=== PATIENT | female | born 1935 | race Caucasian/White ===

== ENCOUNTER 2017-11-25 12:12 | Inpatient (IN) | payer MEDICARE, MEDICAID ==
[2017-11-25 12:17] VITALS: BMI 25.0
[2017-11-25] MEDS ORDERED: Albuterol-Ipratrop 3 mg / 0.5 (3 ml) UD INH STA ×2 (14:23→14:32)
[2017-11-25] MEDS ORDERED: cefTRIAXone IV 1 gm in Dextros 50 ML IV ONE (14:24)
[2017-11-25] MEDS ORDERED: Azithromycin 500 MG in Sodium Chloride 0.9% 250 ML IV STA (14:24)
[2017-11-25 15:00] LABS: BASO % 0.5 % (0.0-2.0); EOS # 0.1 K/uL (0.0-0.7); EOS % 1.6 % (0.0-4.0); HEMOGLOBIN 13.5 g/dL (11.0-16.0); LYMPH % 34.7 % (20.0-40.0); MEAN CELL VOLUME 95.5 fL (81.0-99.0); MEAN CORPUSCULAR HGB CONC 33.5 g/dL (33.0-37.0); MEAN PLATELET VOLUME 10.9 fL (7.2-11.7); MONO # 0.7 K/uL (0.0-0.8); MONO % 8.4 % (0.0-10.0); NEUT # 4.7 K/uL (1.8-7.0); NEUT % 54.8 % (50.0-75.0); RBC 4.23 Mil/uL (3.80-5.20); RED CELL DISTRIBUTION WIDTH 14.9 % (11.5-14.5); WHITE BLOOD COUNT 8.7 K/uL (4.8-10.8)
[2017-11-25 15:07] LABS: INR 1.1; PROTHROMBIN TIME 12.2 SECONDS (9.7-12.2)
[2017-11-25 15:19] LABS: ALB/GLOB RATIO 1.1 (1.0-2.1); ALBUMIN 3.9 g/dL (3.5-5.0); ALT/SGPT 17 U/L (9-52); AST/SGOT 29 U/L (14-36); BLOOD UREA NITROGEN 15 mg/dL (7-17); GFR AFRICAN-AMERICAN > 60; GFR NON-AFRICAN AMERICAN > 60
--- NOTE | 2017-11-25 15:28 | C.PDOC ---
History Of Present Illness 82 y/o female presents to the ER complaining of productive coughing which has been present for an unknown amount of time. Patient reports that she has been coughing up brown sputum for an unknown period of time. Patient reports that she ran out one of her asthma medications. Patient reports questionable home O2 use overnight. Patient denies having any fever or chills. Time Seen by Provider: 11/25/17 13:25 Chief Complaint (Nursing): Shortness Of Breath History Per: Patient History/Exam Limitations: no limitations Onset/Duration Of Symptoms: Unknown Current Symptoms Are (Timing): Still Present Past Medical History Reviewed: Historical Data, Nursing Documentation, Vital Signs Vital Signs: Last Vital Signs Temp 97.9 F 11/29/17 15:16 Pulse 90 11/29/17 16:09 Resp 18 11/29/17 15:16 BP 125/74 11/29/17 15:16 Pulse Ox 96 11/29/17 15:16 - Medical History PMH: Alzheimer's Disease, Asthma, CHF, COPD, HTN, Hypothyroidism Denies: Chronic Kidney Disease Surgical History: Appendectomy - [facility] Procedures EXCISION OF STOMACH, ENDO, DIAGN (05/07/16) Family History: States: No Known Family Hx - Social History Hx Alcohol Use: No Hx Substance Use: No - Immunization History Hx Tetanus Toxoid Vaccination: No Hx Influenza Vaccination: Yes Hx Pneumococcal Vaccination: Yes Review Of Systems Except As Marked, All Systems Reviewed And Found Negative. Constitutional: Negative for: Fever, Chills Respiratory: Positive for: Cough (productive cough), Sputum (brown sputum) Neurological: Negative for: Weakness, Numbness Physical Exam - Physical Exam Appears: Non-toxic, No Acute Distress, Other (frail woman) Skin: Normal Color, Warm Head: Atraumatic, Normacephalic Eye(s): bilateral: Normal Inspection Nose: Normal Oral Mucosa: Moist Neck: Supple Cardiovascular: Rhythm Regular Respiratory: Normal Breath Sounds, No Accessory Muscle Use, Rhonchi (scattered rhonchi), No Wheezing Extremity: Normal ROM, Tenderness (tenderness in the left trapezius muscle), No Calf Tenderness, No Deformity, No Swelling Neurological/Psych: Oriented x3, Normal Speech, Normal Cognition ED Course And Treatment - Laboratory Results Result Diagrams: 11/29/17 07:26 11/29/17 07:26 Lab Interpretation: Normal (trop neg, bnp neg.) O2 Sat by Pulse Oximetry: 98 (RA) Pulse Ox Interpretation: Normal - Radiology CXR: Interpreted by Me CXR Interpretation: Yes: No Acute Disease Progress Note: rocephin, azothromycin, solumedrol, duoneb Reevaluation Time: 16:26 Reassessment Condition: Improved - Physician Consult Information Outcome Of Conversation: 1630: d/w Dr. Usha Ornelas- PMD- ok to admit. Medical Decision Making Medical Decision Making: Impression: Productive Cough Plan: --Labs -- X-Ray- Left Shoulder --ECG --Nebulizer Treatment --Duoneb 3 ml INH cough/sob: Clear lungs. ? home O2 overnight vs CPAP? empiric abx and nebs for pt's story of productive cough L shoulder pain/decreased ROM + L trapezius tenderness, normal shoulder joint and film. NSAIDS and solumdrol for the resp issues should help No more hot massages by [facility]0 seem to make it worse. Loose stools No stools in ED as pt recently hospitalized and abx may be at risks for C-dif but no s/s now. Disposition Doctor Will See Patient In The: Hospital Counseled Patient/Family Regarding: Studies Performed, Diagnosis - Disposition Disposition: HOSPITALIZED Disposition Time: 16:00 Condition: GOOD - Clinical Impression Clinical Impression: Chronic obstructive pulmonary disease with (acute) exacerbation, Trapezius strain, Diarrhea - Scribe Statement The provider has reviewed the documentation as recorded by the Hakan Rdz Provider Attestation: All medical record entries made by the Hakan were at my direction and personally dictated by me. I have reviewed the chart and agree that the record accurately reflects my personal performance of the history, physical exam, medical decision making, and the department course for this patient. I have also personally directed, reviewed, and agree with the discharge instructions and disposition.
[2017-11-25 15:30] LABS: B-TYPE NATRIURETIC PEPTIDE 520 pg/mL (0-900)
[2017-11-25] MEDS ORDERED: Albuterol-Ipratrop 3 mg / 0.5 (3 ml) UD ONE (15:32)
--- NOTE | 2017-11-25 16:53 | RAD ---
PROCEDURE: Radiographs of the Left Shoulder HISTORY: L shoulder pain COMPARISON: No prior. FINDINGS: BONES: No fracture or dislocation. JOINTS: . Glenohumeral and acromioclavicular hypertrophic arthrosis SOFT TISSUES: Punctate and linear calcifications ossifications bordering the humeral head -calcific tendinopathy and/or calcific bursitis considerations. OTHER FINDINGS: None. IMPRESSION: No fracture or dislocation. Glenohumeral and acromioclavicular osseous hypertrophic arthrosis. Left calcific rotator cuff tendinopathy versus calcific bursitis.
--- NOTE | 2017-11-25 16:56 | RAD ---
PROCEDURE: CHEST RADIOGRAPH, 1 VIEW HISTORY: SOB COMPARISON: 12/11/2016 FINDINGS: LUNGS: No consolidation. Short segmental thin lateral left mid lung zone interval discoid atelectasis and/or scarring suggested PLEURA: No pneumothorax or pleural fluid seen. CARDIOVASCULAR: Normal. OSSEOUS STRUCTURES: Thoracic spondylosis. Bilateral shoulder arthrosis. Left rotator cuff small calcific rotator cuff tendinopathy and/or calcific bursitis. VISUALIZED UPPER ABDOMEN: Normal. OTHER FINDINGS: None. IMPRESSION: No consolidative infiltrate. Interval short segmental thin discoid atelectasis and/or scarring -lateral left mid lung zone. Bilateral shoulder arthrosis Left shoulder calcific bursitis center calcific rotator cuff tendinopathy sign -small calcifications noted
--- NOTE | 2017-11-25 17:44 | CP.PCM.HP ---
Past Patient History - Past Medical History & Family History Past Medical History?: Yes - Past Social History Smoking Status: Never Smoked - CARDIAC Hx Congestive Heart Failure: Yes Hx Hypertension: Yes - PULMONARY Hx Asthma: Yes Hx Chronic Obstructive Pulmonary Disease (COPD): Yes - NEUROLOGICAL Hx Alzheimer's Disease: Yes - HEENT Hx HEENT Problems: No - RENAL Hx Chronic Kidney Disease: No - ENDOCRINE/METABOLIC Hx Hypothyroidism: Yes - HEMATOLOGICAL/ONCOLOGICAL Hx Blood Disorders: No Hx Blood Transfusions: No - INTEGUMENTARY Hx Dermatological Problems: No - MUSCULOSKELETAL/RHEUMATOLOGICAL Hx Falls: No - GASTROINTESTINAL Hx Gastrointestinal Disorders: No - GENITOURINARY/GYNECOLOGICAL Hx Genitourinary Disorders: No - PSYCHIATRIC Hx Substance Use: No - SURGICAL HISTORY Hx Appendectomy: Yes - ANESTHESIA Hx Anesthesia: Yes Hx Anesthesia Reactions: No Hx Malignant Hyperthermia: No Meds Allergies/Adverse Reactions: Allergies Allergy/AdvReac Type Severity Reaction Status Date / Time aspirin Allergy Verified 11/25/17 12:16 Penicillins Allergy Verified 11/25/17 12:16 Physical Exam - Constitutional Appears: Well - Head Exam Head Exam: ATRAUMATIC, NORMAL INSPECTION, NORMOCEPHALIC - Eye Exam Eye Exam: EOMI, Normal appearance, PERRL Pupil Exam: NORMAL ACCOMODATION, PERRL - ENT Exam ENT Exam: Mucous Membranes Moist, Normal Exam - Neck Exam Neck exam: Positive for: Normal Inspection - Respiratory Exam Respiratory Exam: Decreased Breath Sounds - Cardiovascular Exam Cardiovascular Exam: REGULAR RHYTHM, +S1, +S2 - GI/Abdominal Exam GI & Abdominal Exam: Diminished Bowel Sounds, Soft - Rectal Exam Rectal Exam: Deferred Results - Vital Signs Recent Vital Signs: Last Vital Signs Temp 97.5 F L 11/25/17 12:17 Pulse 61 11/25/17 17:26 Resp 18 11/25/17 17:26 BP 120/73 11/25/17 17:26 Pulse Ox 95 11/25/17 17:26 - Labs Result Diagrams: 11/25/17 14:48 11/25/17 14:48 Labs: Laboratory Results - last 24 hr 11/25/17 11/25/17 11/25/17 14:48 14:48 14:48 WBC 8.7 RBC 4.23 Hgb 13.5 Hct 40.4 MCV 95.5 D MCH 32.0 H MCHC 33.5 RDW 14.9 H Plt Count 187 MPV 10.9 Neut % (Auto) 54.8 Lymph % (Auto) 34.7 L[place] % (Auto) 8.4 Eos % (Auto) 1.6 Baso % (Auto) 0.5 Neut # 4.7 Lymph # 3.0 Luce # 0.7 Eos # 0.1 Baso # 0.0 PT 12.2 INR 1.1 APTT 31 Sodium 135 Potassium 3.5 L Chloride 96 L Carbon Dioxide 30 Anion Gap 12 BUN 15 Creatinine 0.7 Est GFR ( Amer) > 60 Est GFR (Non-Af Amer) > 60 Random Glucose 112 H Calcium 8.0 L Total Bilirubin 0.7 AST 29 ALT 17 Alkaline Phosphatase 36 L Troponin I < 0.0120 NT-Pro-B Natriuret Pep 520 Total Protein 7.3 Albumin 3.9 Globulin 3.5 Albumin/Globulin Ratio 1.1
[2017-11-25] MEDS: Albuterol-Ipratrop 3 mg / 0.5 (3 ml) UD INH SCH (20:03)
--- NOTE | 2017-11-25 20:30 | CP.PCM.CON ---
History of Present Illness - History of Present Illness History of Present Illness: INFECTIOUS DISEASE CONSULT; HPI; 82-year-old female with history of diabetes mellitus, HTN, COPD, hyperlipidemia , dementia who presents to the ER complaining of productive cough for the past 2 weeks or more. Patient also reports she has been coughing up brownish expectorant for unknown period of time. She denies any chest pains. Patient also reports that she ran out of her asthma medications and was not taking anything except her other pills. Patient denies any fever or chills. Patient was given IV Zithromax in the ER as she is allergic to penicillin. Infectious disease consultation requested by PMD for evaluation of pneumonia and exacerbation of COPD. PMH: Alzheimer's Disease, Asthma, CHF, COPD, HTN, Hypothyroidism Denies: Chronic Kidney Disease Surgical History: Appendectomy - [facility] Procedures EXCISION OF STOMACH, ENDO, DIAGN (05/07/16) Family History: States: No Known Family Hx - Social History Hx Alcohol Use: No Hx Substance Use: No - Immunization History Hx Tetanus Toxoid Vaccination: No Hx Influenza Vaccination: Yes Hx Pneumococcal Vaccination: Yes Review of Systems - Constitutional Constitutional: absent: Chills - EENT Eyes: absent: Loss of Vision Nose/Mouth/Throat: absent: Dry Mouth, Mouth Lesions, Sore Throat - Cardiovascular Cardiovascular: absent: Chest Pain - Respiratory Respiratory: Cough, Chest Congestion - Gastrointestinal Gastrointestinal: absent: Abdominal Pain, Diarrhea, Nausea, Vomiting - Genitourinary Genitourinary: absent: Dysuria - Menstruation Menstruation: Post Menopausal - Neurological Neurological: absent: Headaches - Hematologic/Lymphatic Hematologic: As Per HPI. absent: Lymphadenopathy Past Patient History - Past Medical History & Family History Past Medical History?: Yes - Past Social History Smoking Status: Never Smoked - CARDIAC Hx Congestive Heart Failure: Yes Hx Hypertension: Yes - PULMONARY Hx Asthma: Yes Hx Chronic Obstructive Pulmonary Disease (COPD): Yes - NEUROLOGICAL Hx Alzheimer's Disease: Yes - HEENT Hx HEENT Problems: No - RENAL Hx Chronic Kidney Disease: No - ENDOCRINE/METABOLIC Hx Hypothyroidism: Yes - HEMATOLOGICAL/ONCOLOGICAL Hx Blood Disorders: No Hx Blood Transfusions: No - INTEGUMENTARY Hx Dermatological Problems: No - MUSCULOSKELETAL/RHEUMATOLOGICAL Hx Falls: No - GASTROINTESTINAL Hx Gastrointestinal Disorders: No - GENITOURINARY/GYNECOLOGICAL Hx Genitourinary Disorders: No - PSYCHIATRIC Hx Substance Use: No - SURGICAL HISTORY Hx Appendectomy: Yes - ANESTHESIA Hx Anesthesia: Yes Hx Anesthesia Reactions: No Hx Malignant Hyperthermia: No Meds Allergies/Adverse Reactions: Allergies Allergy/AdvReac Type Severity Reaction Status Date / Time aspirin Allergy Verified 11/25/17 12:16 Penicillins Allergy Verified 11/25/17 12:16 - Medications Medications: Current Medications Albuterol/Ipratropium (Duoneb 3 Mg/0.5 Mg (3 Ml) Ud) 3 ml INH RQ6 [facility] Last Admin: 11/25/17 20:03 Dose: 3 ml Donepezil HCl (Aricept) 10 mg PO DAILY [facility] Enoxaparin Sodium (Lovenox) 40 mg SC DAILY [facility] Furosemide (Lasix) 20 mg IVP DAILY [facility] Glipizide (Glucotrol) 5 mg PO DAILY [facility] Azithromycin 500 mg/ Sodium (Chloride) 250 mls @ 250 mls/hr IVPB DAILY [facility] Insulin Aspart (Novolog) 0 unit SC ACHS [facility] PRN Reason: Protocol Losartan Potassium (Cozaar) 25 mg PO DAILY [facility] Pantoprazole Sodium (Protonix Ec Tab) 40 mg PO DAILY [facility] Pneumococcal Polyvalent Vaccine (Pneumovax 23 Vaccine) 0.5 ml IM .ONCE ONE Stop: 11/27/17 10:01 Rosuvastatin Calcium (Crestor) 5 mg PO HS [facility] Sitagliptin Phosphate (Januvia) 50 mg PO DAILY [facility] Physical Exam - Constitutional Appears: No Acute Distress, Cachectic - Head Exam Head Exam: NORMAL INSPECTION - Eye Exam Eye Exam: EOMI, PERRL - ENT Exam ENT Exam: Normal Oropharynx - Neck Exam Neck exam: Positive for: Normal Inspection - Respiratory Exam Respiratory Exam: Decreased Breath Sounds - Cardiovascular Exam Cardiovascular Exam: REGULAR RHYTHM, +S1, +S2 - GI/Abdominal Exam GI & Abdominal Exam: Normal Bowel Sounds, Soft. absent: Tenderness - Extremities Exam Extremities exam: Positive for: pedal pulses present. Negative for: calf tenderness, pedal edema - Neurological Exam Neurological exam: Alert, CN II-XII Intact, Oriented x3, Reflexes Normal - Psychiatric Exam Psychiatric exam: Normal Mood - Skin Skin Exam: Warm Results - Vital Signs Recent Vital Signs: Last Vital Signs Temp 97.5 F L 11/25/17 18:30 Pulse 60 11/25/17 20:05 Resp 20 11/25/17 18:30 BP 119/69 11/25/17 18:30 Pulse Ox 98 12/26/17 18:30 - Labs Result Diagrams: 11/25/17 14:48 11/26/17 06:17 Labs: Laboratory Results - last 24 hr 11/25/17 11/25/17 11/25/17 14:48 14:48 14:48 WBC 8.7 RBC 4.23 Hgb 13.5 Hct 40.4 MCV 95.5 D MCH 32.0 H MCHC 33.5 RDW 14.9 H Plt Count 187 MPV 10.9 Neut % (Auto) 54.8 Lymph % (Auto) 34.7 [place] % (Auto) 8.4 Eos % (Auto) 1.6 Baso % (Auto) 0.5 Neut # 4.7 Lymph # 3.0 [place] # 0.7 Eos # 0.1 Baso # 0.0 PT 12.2 INR 1.1 APTT 31 Sodium 135 Potassium 3.5 L Chloride 96 L Carbon Dioxide 30 Anion Gap 12 BUN 15 Creatinine 0.7 Est GFR ( Amer) > 60 Est GFR (Non-Af Amer) > 60 Random Glucose 112 H Calcium 8.0 L Total Bilirubin 0.7 AST 29 ALT 17 Alkaline Phosphatase 36 L Troponin I < 0.0120 NT-Pro-B Natriuret Pep 520 Total Protein 7.3 Albumin 3.9 Globulin 3.5 Albumin/Globulin Ratio 1.1 - Imaging and Cardiology Chest x-ray Status: Report reviewed by me (CHEST X-RAY 11/25/17 NEGATIVE FOR CONSOLIDATIVE INFILTRATE. lEFT MIDLUNG DISCOID ATELECTASIS.) Assessment & Plan (1) Chronic obstructive pulmonary disease with (acute) exacerbation Assessment and Plan: pancultures. ESR, CRP. ATYPICAL TITERS. SPUTUM GRAM STAIN AND CULTURE. DC ZITHROMAX. * START IV AVELOX 400 MG ONCE A DAY DAILY. 11/25/17. Status: Acute (2) Acute bronchitis Assessment and Plan: SPUTUM gRAM STAIN AND CULTURE. pULMONARY TOILET. Status: Acute (3) Cough Assessment and Plan: COUGH EXPECTORANT. PULMONARY TOILET. Status: Acute (4) Diabetes Assessment and Plan: patient managed by PMD .Hemoglobin A1c. Status: Acute (5) Hypertension Status: Acute
[2017-11-25] MEDS: (Novolog) Insulin Aspart, Recombinant 100 u/ml 10 ml vial SC SCH (21:26)
[2017-11-25] MEDS: Moxifloxacin IV 400mg/250ml NS 400 MG/250 ML BAG IVPB SCH (22:06)
[2017-11-26] MEDS ORDERED: Potassium Chloride 20 mEq ER Tab PO ONE
[2017-11-26] MEDS: Albuterol-Ipratrop 3 mg / 0.5 (3 ml) UD INH SCH ×4 (02:19→20:02)
[2017-11-26] MEDS: (Novolog) Insulin Aspart, Recombinant 100 u/ml 10 ml vial SC SCH ×4 (07:46→21:49)
[2017-11-26 08:02] LABS: B-TYPE NATRIURETIC PEPTIDE 709 pg/mL (0-900)
[2017-11-26] MEDS ORDERED: Azithromycin 500 MG in Sodium Chloride 0.9% 250 ML IVPB SCH (10:00)
[2017-11-26] MEDS: Enoxaparin 40 mg Syringe SC SCH (10:04)
[2017-11-26] MEDS: Pantoprazole 40 mg EC Tab PO SCH (10:04)
[2017-11-26] MEDS: MethylPREDNISolone 40 mg Vial IVP SCH ×2 (10:04→21:48)
[2017-11-26 11:04] LABS: BLOOD UREA NITROGEN 19 mg/dL (7-17); CALCIUM 7.8 mg/dl (8.6-10.4); GFR AFRICAN-AMERICAN > 60; GFR NON-AFRICAN AMERICAN > 60
--- NOTE | 2017-11-26 15:35 | CP.PCM.CON ---
History of Present Illness - History of Present Illness History of Present Illness: 82 y/o female with PMHx of HTN, DM, COPD, HLD presents with c/o productive coughing with brown sputum for 2 weeks. Patient reports that had ran out of her COPD medications. Patient reports home O2 use at overnight. Patient denies any fever or chills. Review of Systems - Review of Systems All systems: reviewed and no additional remarkable complaints except (See HPI rest negative) Past Patient History - Past Medical History & Family History Past Medical History?: Yes - Past Social History Smoking Status: Never Smoked - CARDIAC Hx Congestive Heart Failure: Yes Hx Hypertension: Yes - PULMONARY Hx Chronic Obstructive Pulmonary Disease (COPD): Yes - NEUROLOGICAL Hx Alzheimer's Disease: Yes - HEENT Hx HEENT Problems: No - RENAL Hx Chronic Kidney Disease: No - ENDOCRINE/METABOLIC Hx Hypothyroidism: Yes - HEMATOLOGICAL/ONCOLOGICAL Hx Blood Disorders: No Hx Blood Transfusions: No - INTEGUMENTARY Hx Dermatological Problems: No - MUSCULOSKELETAL/RHEUMATOLOGICAL Hx Falls: No - GASTROINTESTINAL Hx Gastrointestinal Disorders: No - GENITOURINARY/GYNECOLOGICAL Hx Genitourinary Disorders: No - PSYCHIATRIC Hx Substance Use: No - SURGICAL HISTORY Hx Appendectomy: Yes - ANESTHESIA Hx Anesthesia: Yes Hx Anesthesia Reactions: No Hx Malignant Hyperthermia: No Meds Allergies/Adverse Reactions: Allergies Allergy/AdvReac Type Severity Reaction Status Date / Time aspirin Allergy Verified 11/25/17 12:16 Penicillins Allergy Verified 11/25/17 12:16 - Medications Medications: Current Medications Albuterol/Ipratropium (Duoneb 3 Mg/0.5 Mg (3 Ml) Ud) 3 ml INH RQ6 [facility] Last Admin: 11/26/17 13:19 Dose: 3 ml Donepezil HCl (Aricept) 10 mg PO DAILY [facility] Enoxaparin Sodium (Lovenox) 40 mg SC DAILY [facility] Last Admin: 11/26/17 10:04 Dose: 40 mg Furosemide (Lasix) 20 mg IVP DAILY [facility] Last Admin: 11/26/17 10:05 Dose: 20 mg Glipizide (Glucotrol) 5 mg PO DAILY [facility] Last Admin: 11/26/17 10:05 Dose: 5 mg Moxifloxacin HCl (Avelox Iv 400mg/250ml Ns) 400 mg in 250 mls @ 167 mls/hr IVPB Q24H [facility] Last Admin: 11/25/17 22:06 Dose: 167 mls/hr Insulin Aspart (Novolog) 0 unit SC ACHS [facility] PRN Reason: Protocol Last Admin: 11/26/17 12:26 Dose: 1 unit Loperamide HCl (Imodium) 2 mg PO ONCE PRN PRN Reason: after stool CDiff collected Losartan Potassium (Cozaar) 25 mg PO DAILY [facility] Last Admin: 11/26/17 10:05 Dose: 25 mg Methylprednisolone (Solu-Medrol) 40 mg IVP Q12 [facility] Last Admin: 11/26/17 10:04 Dose: 40 mg Pantoprazole Sodium (Protonix Ec Tab) 40 mg PO DAILY [facility] Last Admin: 11/26/17 10:04 Dose: 40 mg Pneumococcal Polyvalent Vaccine (Pneumovax 23 Vaccine) 0.5 ml IM .ONCE ONE Stop: 11/27/17 10:01 Rosuvastatin Calcium (Crestor) 5 mg PO HS [facility] Last Admin: 11/25/17 22:08 Dose: 5 mg Sitagliptin Phosphate (Januvia) 50 mg PO DAILY [facility] Last Admin: 11/26/17 10:05 Dose: 50 mg Physical Exam - Head Exam Head Exam: NORMAL INSPECTION - Eye Exam Eye Exam: Normal appearance - ENT Exam ENT Exam: Mucous Membranes Moist - Respiratory Exam Respiratory Exam: Rhonchi - Cardiovascular Exam Cardiovascular Exam: REGULAR RHYTHM, +S1, +S2 - GI/Abdominal Exam GI & Abdominal Exam: Normal Bowel Sounds, Soft - Extremities Exam Extremities exam: Positive for: normal inspection Results - Vital Signs Recent Vital Signs: Last Vital Signs Temp 98.1 F 11/26/17 08:05 Pulse 70 11/26/17 13:13 Resp 20 11/26/17 08:05 BP 115/69 11/26/17 10:05 Pulse Ox 95 11/26/17 08:05 - Labs Result Diagrams: 11/25/17 14:48 11/26/17 06:17 Labs: Laboratory Results - last 24 hr 11/25/17 11/25/17 11/26/17 14:48 20:55 06:10 PT 12.2 INR 1.1 APTT 31 Sodium Potassium Chloride Carbon Dioxide Anion Gap BUN Creatinine Est GFR ( Amer) Est GFR (Non-Af Amer) POC Glucose (mg/dL) 135 H 137 H Random Glucose Calcium NT-Pro-B Natriuret Pep 11/26/17 11/26/17 06:17 11:12 PT INR APTT Sodium 135 Potassium 4.1 Chloride 100 Carbon Dioxide 27 Anion Gap 12 BUN 19 H Creatinine 0.7 Est GFR ( Amer) > 60 Est GFR (Non-Af Amer) > 60 POC Glucose (mg/dL) 183 H Random Glucose 151 H Calcium 7.8 L NT-Pro-B Natriuret Pep 709 Assessment & Plan - Assessment and Plan (Free Text) Assessment: COPD Acute Bronchitis Cough HTN Add Advair 250/50 1 P BID Bronchodilators O2 Insentive spirometry Continue Abx as per ID Follow cultures Promethazine PRN DVT/GI prophalaxis
[2017-11-26] MEDS: Promethazine 6.25 MG/5 ML CUP PO SCH ×2 (17:42→21:49)
--- NOTE | 2017-11-26 19:59 | CP.PCM.PN ---
Subjective - Date & Time of Evaluation Date of Evaluation: 11/26/17 Time of Evaluation: 11:20 - Subjective Subjective: clinically same Objective - Vital Signs/Intake and Output Vital Signs (last 24 hours): Temp Pulse Resp BP Pulse Ox 98.2 F 72 18 113/65 98 11/26/17 15:18 11/26/17 15:18 11/26/17 15:18 11/26/17 15:18 11/26/17 15:18 - Medications Medications: Current Medications Albuterol/Ipratropium (Duoneb 3 Mg/0.5 Mg (3 Ml) Ud) 3 ml INH RQ6 [facility] Last Admin: 11/26/17 13:19 Dose: 3 ml Donepezil HCl (Aricept) 10 mg PO DAILY [facility] Enoxaparin Sodium (Lovenox) 40 mg SC DAILY [facility] Last Admin: 11/26/17 10:04 Dose: 40 mg Furosemide (Lasix) 20 mg IVP DAILY [facility] Last Admin: 11/26/17 10:05 Dose: 20 mg Glipizide (Glucotrol) 5 mg PO DAILY [facility] Last Admin: 11/26/17 10:05 Dose: 5 mg Moxifloxacin HCl (Avelox Iv 400mg/250ml Ns) 400 mg in 250 mls @ 167 mls/hr IVPB Q24H [facility] Last Admin: 11/25/17 22:06 Dose: 167 mls/hr Insulin Aspart (Novolog) 0 unit SC ACHS [facility] PRN Reason: Protocol Last Admin: 11/26/17 17:41 Dose: Not Given Loperamide HCl (Imodium) 2 mg PO ONCE PRN PRN Reason: after stool CDiff collected Losartan Potassium (Cozaar) 25 mg PO DAILY [facility] Last Admin: 11/26/17 10:05 Dose: 25 mg Methylprednisolone (Solu-Medrol) 40 mg IVP Q12 [facility] Last Admin: 11/26/17 10:04 Dose: 40 mg Pantoprazole Sodium (Protonix Ec Tab) 40 mg PO DAILY [facility] Last Admin: 11/26/17 10:04 Dose: 40 mg Pneumococcal Polyvalent Vaccine (Pneumovax 23 Vaccine) 0.5 ml IM .ONCE ONE Stop: 11/27/17 10:01 Promethazine HCl (Phenergan Syrup) 6.25 mg PO Q8 [facility] Last Admin: 11/26/17 17:42 Dose: 6.25 mg Rosuvastatin Calcium (Crestor) 5 mg PO HS [facility] Last Admin: 11/25/17 22:08 Dose: 5 mg Fluticasone/Salmeterol (Advair Diskus 250/50) 1 puff INH RQ12 [facility] Sitagliptin Phosphate (Januvia) 50 mg PO DAILY [facility] Last Admin: 11/26/17 10:05 Dose: 50 mg - Labs Labs: 11/25/17 14:48 11/26/17 06:17 PT 12.2 SECONDS (9.7-12.2) 11/25/17 14:48 INR 1.1 11/25/17 14:48 APTT 31 SECONDS (21-34) 11/25/17 14:48
[2017-11-26] MEDS: Fluticasone-Salmeterol 250-50mcg Diskus INH SCH (20:00)
--- NOTE | 2017-11-26 20:45 | CP.PCM.PN ---
Subjective - Date & Time of Evaluation Date of Evaluation: 11/26/17 Time of Evaluation: 20:45 - Subjective Subjective: CHIEF COMPLAINTS TODAY : afebrile c/o cough with brownish sputum. C/O LOOSE STOOLS. ROS. HEENT : N. Resp : No SOB wheezing, COUGH WITH PRODUCTIVE SPUTUM. Cardio : No CP, PND orthopnea GI : No abd. 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 Musculoskel : N Ext. : Pedal pulses intact, no edema or calf pain Derm : N Psych : N. PE. Pt. is alert awake in no distress. V.S As noted in the chart Head ,ear nose,throat and eyes : Normal. Neck : Supple with normal carotids. Lungs: BILATERAL RHONCHI Heart : S1 & S2 normal . . No murmur. S4 + Abd : Soft non tender with normal bowel sounds. Neuro : Moves all ext. with no localized deficit. Ext : No edema with intact pulses. Neg. calf tenderness Derm : No rashes or decubitus ulcer. Radiology/Labs . REVIEWED. Objective - Vital Signs/Intake and Output Vital Signs (last 24 hours): Temp Pulse Resp BP Pulse Ox 98.2 F 72 18 113/65 98 11/26/17 15:18 11/26/17 15:18 11/26/17 15:18 11/26/17 15:18 11/26/17 15:18 - Medications Medications: Current Medications Albuterol/Ipratropium (Duoneb 3 Mg/0.5 Mg (3 Ml) Ud) 3 ml INH RQ6 [facility] Last Admin: 11/26/17 20:02 Dose: 3 ml Donepezil HCl (Aricept) 10 mg PO DAILY [facility] Enoxaparin Sodium (Lovenox) 40 mg SC DAILY [facility] Last Admin: 11/26/17 10:04 Dose: 40 mg Furosemide (Lasix) 20 mg IVP DAILY [facility] Last Admin: 11/26/17 10:05 Dose: 20 mg Glipizide (Glucotrol) 5 mg PO DAILY [facility] Last Admin: 11/26/17 10:05 Dose: 5 mg Moxifloxacin HCl (Avelox Iv 400mg/250ml Ns) 400 mg in 250 mls @ 167 mls/hr IVPB Q24H [facility] Last Admin: 11/25/17 22:06 Dose: 167 mls/hr Insulin Aspart (Novolog) 0 unit SC ACHS [facility] PRN Reason: Protocol Last Admin: 11/26/17 17:41 Dose: Not Given Loperamide HCl (Imodium) 2 mg PO ONCE PRN PRN Reason: after stool CDiff collected Losartan Potassium (Cozaar) 25 mg PO DAILY [facility] Last Admin: 11/26/17 10:05 Dose: 25 mg Methylprednisolone (Solu-Medrol) 40 mg IVP Q12 [facility] Last Admin: 11/26/17 10:04 Dose: 40 mg Pantoprazole Sodium (Protonix Ec Tab) 40 mg PO DAILY [facility] Last Admin: 11/26/17 10:04 Dose: 40 mg Pneumococcal Polyvalent Vaccine (Pneumovax 23 Vaccine) 0.5 ml IM .ONCE ONE Stop: 11/27/17 10:01 Promethazine HCl (Phenergan Syrup) 6.25 mg PO Q8 [facility] Last Admin: 11/26/17 17:42 Dose: 6.25 mg Rosuvastatin Calcium (Crestor) 5 mg PO HS [facility] Last Admin: 11/25/17 22:08 Dose: 5 mg Fluticasone/Salmeterol (Advair Diskus 250/50) 1 puff INH RQ12 [facility] Last Admin: 11/26/17 20:00 Dose: 1 puff Sitagliptin Phosphate (Januvia) 50 mg PO DAILY [facility] Last Admin: 11/26/17 10:05 Dose: 50 mg - Labs Labs: 11/25/17 14:48 11/26/17 06:17 PT 12.2 SECONDS (9.7-12.2) 11/25/17 14:48 INR 1.1 11/25/17 14:48 APTT 31 SECONDS (21-34) 11/25/17 14:48 Assessment and Plan (1) Chronic obstructive pulmonary disease with (acute) exacerbation Assessment & Plan: continue IV Avelox 400 mg once a day daily.11/25/17. Nebulizer therapy Pulmonary toilet as per pulmonary. Status: Acute (2) Acute bronchitis Assessment & Plan: sputum Gram stain and culture-p asked RN to collect a sample. Status: Acute (3) Cough Assessment & Plan: cough expectorant. Status: Acute (4) Diabetes Status: Acute (5) Hypertension Status: Acute (6) Diarrhea Assessment & Plan: check stools for C. difficile toxin and notify if positive. Status: Acute
[2017-11-26] MEDS: Moxifloxacin IV 400mg/250ml NS 400 MG/250 ML BAG IVPB SCH (21:11)
[2017-11-27] MEDS: Albuterol-Ipratrop 3 mg / 0.5 (3 ml) UD INH SCH ×4 (02:27→19:28)
[2017-11-27] MEDS: Promethazine 6.25 MG/5 ML CUP PO SCH ×3 (06:00→21:40)
[2017-11-27] MEDS: Fluticasone-Salmeterol 250-50mcg Diskus INH SCH ×2 (07:48→19:28)
[2017-11-27] MEDS: (Novolog) Insulin Aspart, Recombinant 100 u/ml 10 ml vial SC SCH ×4 (08:10→21:53)
[2017-11-27] MEDS ORDERED: Pneumococcal 23-Valent Vaccine IM ONE (10:00)
[2017-11-27] MEDS: Pantoprazole 40 mg EC Tab PO SCH (10:03)
[2017-11-27] MEDS: MethylPREDNISolone 40 mg Vial IVP SCH ×2 (10:03→21:39)
[2017-11-27] MEDS: Enoxaparin 40 mg Syringe SC SCH (10:07)
--- NOTE | 2017-11-27 12:55 | CARD ---
APPROVED REPORT EKG Measurement Heart [id number] <Conclusion> Normal sinus rhythm Normal ECG
--- NOTE | 2017-11-27 14:44 | CP.PCM.PN ---
Subjective - Date & Time of Evaluation Date of Evaluation: 11/27/17 Time of Evaluation: 14:39 - Subjective Subjective: Patient seen and examined Improved dyspnea Objective - Vital Signs/Intake and Output Vital Signs (last 24 hours): Temp Pulse Resp BP Pulse Ox 97.7 F 99 H 20 122/73 96 11/27/17 07:35 11/27/17 12:30 11/27/17 07:35 11/27/17 10:03 11/27/17 07:35 Intake and Output: 11/27/17 11/27/17 06:59 18:59 Intake Total 10 Balance 10 - Medications Medications: Current Medications Albuterol/Ipratropium (Duoneb 3 Mg/0.5 Mg (3 Ml) Ud) 3 ml INH RQ6 [facility] Last Admin: 11/27/17 13:24 Dose: 3 ml Donepezil HCl (Aricept) 10 mg PO DAILY [facility] Enoxaparin Sodium (Lovenox) 40 mg SC DAILY [facility] Last Admin: 11/27/17 10:07 Dose: 40 mg Furosemide (Lasix) 20 mg IVP DAILY [facility] Last Admin: 11/27/17 10:03 Dose: 20 mg Glipizide (Glucotrol) 5 mg PO DAILY [facility] Last Admin: 11/27/17 10:03 Dose: 5 mg Moxifloxacin HCl (Avelox Iv 400mg/250ml Ns) 400 mg in 250 mls @ 167 mls/hr IVPB Q24H [facility] Last Admin: 11/26/17 21:11 Dose: 167 mls/hr Insulin Aspart (Novolog) 0 unit SC ACHS [facility] PRN Reason: Protocol Last Admin: 11/27/17 12:21 Dose: 3 unit Loperamide HCl (Imodium) 2 mg PO ONCE PRN PRN Reason: after stool CDiff collected Losartan Potassium (Cozaar) 25 mg PO DAILY [facility] Last Admin: 11/27/17 10:03 Dose: 25 mg Methylprednisolone (Solu-Medrol) 40 mg IVP Q12 [facility] Last Admin: 11/27/17 10:03 Dose: 40 mg Pantoprazole Sodium (Protonix Ec Tab) 40 mg PO DAILY [facility] Last Admin: 11/27/17 10:03 Dose: 40 mg Promethazine HCl (Phenergan Syrup) 6.25 mg PO Q8 [facility] Last Admin: 11/27/17 13:23 Dose: 6.25 mg Rosuvastatin Calcium (Crestor) 5 mg PO HS [facility] Last Admin: 11/26/17 21:48 Dose: 5 mg Fluticasone/Salmeterol (Advair Diskus 250/50) 1 puff INH RQ12 [facility] Last Admin: 11/27/17 07:48 Dose: 1 puff Sitagliptin Phosphate (Januvia) 50 mg PO DAILY [facility] Last Admin: 11/27/17 10:03 Dose: 50 mg - Labs Labs: 11/25/17 14:48 11/26/17 06:17 PT 12.2 SECONDS (9.7-12.2) 11/25/17 14:48 INR 1.1 11/25/17 14:48 APTT 31 SECONDS (21-34) 11/25/17 14:48 - Head Exam Head Exam: NORMAL INSPECTION - Eye Exam Eye Exam: Normal appearance - ENT Exam ENT Exam: Mucous Membranes Moist - Respiratory Exam Respiratory Exam: Rhonchi - Cardiovascular Exam Cardiovascular Exam: REGULAR RHYTHM, +S1, +S2 - GI/Abdominal Exam GI & Abdominal Exam: Soft, Normal Bowel Sounds - Neurological Exam Neurological Exam: Alert - Skin Skin Exam: Normal Color Assessment and Plan - Assessment and Plan (Free Text) Assessment: COPD Acute Bronchitis Cough HTN Continue Advair 250/50 1 P BID Bronchodilators Oxygen supplementation Insentive spirometry Continue Abx Follow cultures Promethazine PRN DVT/GI prophalaxis
--- NOTE | 2017-11-27 17:34 | CP.PCM.PN ---
Subjective - Date & Time of Evaluation Date of Evaluation: 11/27/17 Time of Evaluation: 11:20 - Subjective Subjective: clinically same Objective - Vital Signs/Intake and Output Vital Signs (last 24 hours): Temp Pulse Resp BP Pulse Ox 97.5 F L 73 20 109/53 L 98 11/27/17 15:25 11/27/17 15:25 11/27/17 15:25 11/27/17 15:25 11/27/17 15:25 Intake and Output: 11/27/17 11/27/17 06:59 18:59 Intake Total 10 Balance 10 - Medications Medications: Current Medications Albuterol/Ipratropium (Duoneb 3 Mg/0.5 Mg (3 Ml) Ud) 3 ml INH RQ6 [facility] Last Admin: 11/27/17 13:24 Dose: 3 ml Donepezil HCl (Aricept) 10 mg PO DAILY [facility] Enoxaparin Sodium (Lovenox) 40 mg SC DAILY [facility] Last Admin: 11/27/17 10:07 Dose: 40 mg Furosemide (Lasix) 20 mg IVP DAILY [facility] Last Admin: 11/27/17 10:03 Dose: 20 mg Glipizide (Glucotrol) 5 mg PO DAILY [facility] Last Admin: 11/27/17 10:03 Dose: 5 mg Moxifloxacin HCl (Avelox Iv 400mg/250ml Ns) 400 mg in 250 mls @ 167 mls/hr IVPB Q24H [facility] Last Admin: 11/26/17 21:11 Dose: 167 mls/hr Insulin Aspart (Novolog) 0 unit SC ACHS [facility] PRN Reason: Protocol Last Admin: 11/27/17 12:21 Dose: 3 unit Loperamide HCl (Imodium) 2 mg PO ONCE PRN PRN Reason: after stool CDiff collected Losartan Potassium (Cozaar) 25 mg PO DAILY [facility] Last Admin: 11/27/17 10:03 Dose: 25 mg Methylprednisolone (Solu-Medrol) 40 mg IVP Q12 [facility] Last Admin: 11/27/17 10:03 Dose: 40 mg Pantoprazole Sodium (Protonix Ec Tab) 40 mg PO DAILY [facility] Last Admin: 11/27/17 10:03 Dose: 40 mg Promethazine HCl (Phenergan Syrup) 6.25 mg PO Q8 [facility] Last Admin: 11/27/17 13:23 Dose: 6.25 mg Rosuvastatin Calcium (Crestor) 5 mg PO HS [facility] Last Admin: 11/26/17 21:48 Dose: 5 mg Fluticasone/Salmeterol (Advair Diskus 250/50) 1 puff INH RQ12 [facility] Last Admin: 11/27/17 07:48 Dose: 1 puff Sitagliptin Phosphate (Januvia) 50 mg PO DAILY [facility] Last Admin: 11/27/17 10:03 Dose: 50 mg - Labs Labs: 11/25/17 14:48 11/26/17 06:17 PT 12.2 SECONDS (9.7-12.2) 11/25/17 14:48 INR 1.1 11/25/17 14:48 APTT 31 SECONDS (21-34) 11/25/17 14:48
[2017-11-27] MEDS: Moxifloxacin IV 400mg/250ml NS 400 MG/250 ML BAG IVPB SCH (21:40)
--- NOTE | 2017-11-27 22:23 | CP.PCM.PN ---
Subjective - Date & Time of Evaluation Date of Evaluation: 11/27/17 Time of Evaluation: 22:23 - Subjective Subjective: CHIEF COMPLAINTS TODAY : afebrile c/o PRODUCTIVE COUGH C/O LOOSE STOOLS. ROS. HEENT : N. Resp : No SOB wheezing, COUGH WITH PRODUCTIVE SPUTUM. Cardio : No CP, PND orthopnea GI : No abd. 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 Musculoskel : N Ext. : Pedal pulses intact, no edema or calf pain Derm : N Psych : N. PE. Pt. is alert awake in no distress. V.S As noted in the chart Head ,ear nose,throat and eyes : Normal. Neck : Supple with normal carotids. Lungs: BILATERAL RHONCHI Heart : S1 & S2 normal . . No murmur. S4 + Abd : Soft non tender with normal bowel sounds. Neuro : Moves all ext. with no localized deficit. Ext : No edema with intact pulses. Neg. calf tenderness Derm : No rashes or decubitus ulcer. Radiology/Labs . REVIEWED. BLOOD CULTURES NEGATIVE FOR 24 HOURS STOOL C. DIFFICILE NEGATIVE Objective - Vital Signs/Intake and Output Vital Signs (last 24 hours): Temp Pulse Resp BP Pulse Ox 97.5 F L 73 20 109/53 L 98 11/27/17 15:25 11/27/17 15:25 11/27/17 15:25 11/27/17 15:25 11/27/17 15:25 - Medications Medications: Current Medications Albuterol/Ipratropium (Duoneb 3 Mg/0.5 Mg (3 Ml) Ud) 3 ml INH RQ6 [facility] Last Admin: 11/27/17 19:28 Dose: 3 ml Donepezil HCl (Aricept) 10 mg PO DAILY [facility] Enoxaparin Sodium (Lovenox) 40 mg SC DAILY [facility] Last Admin: 11/27/17 10:07 Dose: 40 mg Furosemide (Lasix) 20 mg IVP DAILY [facility] Last Admin: 11/27/17 10:03 Dose: 20 mg Glipizide (Glucotrol) 5 mg PO DAILY [facility] Last Admin: 11/27/17 10:03 Dose: 5 mg Moxifloxacin HCl (Avelox Iv 400mg/250ml Ns) 400 mg in 250 mls @ 167 mls/hr IVPB Q24H [facility] Last Admin: 11/27/17 21:40 Dose: 167 mls/hr Insulin Aspart (Novolog) 0 unit SC ACHS [facility] PRN Reason: Protocol Last Admin: 11/27/17 21:53 Dose: Not Given Loperamide HCl (Imodium) 2 mg PO ONCE PRN PRN Reason: after stool CDiff collected Losartan Potassium (Cozaar) 25 mg PO DAILY [facility] Last Admin: 11/27/17 10:03 Dose: 25 mg Methylprednisolone (Solu-Medrol) 40 mg IVP Q12 [facility] Last Admin: 11/27/17 21:39 Dose: 40 mg Pantoprazole Sodium (Protonix Ec Tab) 40 mg PO DAILY [facility] Last Admin: 11/27/17 10:03 Dose: 40 mg Promethazine HCl (Phenergan Syrup) 6.25 mg PO Q8 [facility] Last Admin: 11/27/17 21:40 Dose: 6.25 mg Rosuvastatin Calcium (Crestor) 5 mg PO HS [facility] Last Admin: 11/27/17 21:39 Dose: 5 mg Fluticasone/Salmeterol (Advair Diskus 250/50) 1 puff INH RQ12 [facility] Last Admin: 11/27/17 19:28 Dose: 1 puff Sitagliptin Phosphate (Januvia) 50 mg PO DAILY [facility] Last Admin: 11/27/17 10:03 Dose: 50 mg - Labs Labs: 11/25/17 14:48 11/26/17 06:17 PT 12.2 SECONDS (9.7-12.2) 11/25/17 14:48 INR 1.1 11/25/17 14:48 APTT 31 SECONDS (21-34) 11/25/17 14:48 - Constitutional Appears: No Acute Distress, Cachectic - Head Exam Head Exam: NORMAL INSPECTION - Eye Exam Eye Exam: EOMI, PERRL - ENT Exam ENT Exam: Normal Oropharynx - Neck Exam Neck Exam: Normal Inspection - Respiratory Exam Respiratory Exam: Prolonged Expiratory Phase, Rhonchi (BILATERALLY) - Cardiovascular Exam Cardiovascular Exam: Tachycardia, REGULAR RHYTHM, +S1, +S2 - GI/Abdominal Exam GI & Abdominal Exam: Soft, Normal Bowel Sounds - Extremities Exam Extremities Exam: Normal Capillary Refill. absent: Calf Tenderness, Pedal Edema - Neurological Exam Neurological Exam: Awake, CN II-XII Intact, Reflexes Normal - Psychiatric Exam Psychiatric exam: Normal Mood - Skin Skin Exam: Warm Assessment and Plan (1) Chronic obstructive pulmonary disease with (acute) exacerbation Assessment & Plan: continue IV Avelox 400 mg once a day daily.11/25/17. Nebulizer therapy Pulmonary toilet as per pulmonary. Status: Acute (2) Acute bronchitis Status: Acute (3) Cough Assessment & Plan: anti-tussive. cough syrup as ordered. Status: Acute (4) Diabetes Status: Acute (5) Hypertension Status: Acute (6) Diarrhea Status: Acute
[2017-11-28] MEDS: Albuterol-Ipratrop 3 mg / 0.5 (3 ml) UD INH SCH ×4 (02:09→19:20)
[2017-11-28] MEDS: Promethazine 6.25 MG/5 ML CUP PO SCH ×3 (05:01→21:28)
[2017-11-28] MEDS: Fluticasone-Salmeterol 250-50mcg Diskus INH SCH ×2 (07:47→19:18)
[2017-11-28] MEDS: (Novolog) Insulin Aspart, Recombinant 100 u/ml 10 ml vial SC SCH ×4 (07:58→22:23)
[2017-11-28] MEDS: MethylPREDNISolone 40 mg Vial IVP SCH ×2 (09:25→21:28)
[2017-11-28] MEDS: Enoxaparin 40 mg Syringe SC SCH (09:27)
[2017-11-28] MEDS: Pantoprazole 40 mg EC Tab PO SCH (09:27)
[2017-11-28] MEDS ORDERED: Influenza Vaccine 60 mcg/0.5 mL SYR (4YR UP) IM ONE (10:00)
--- NOTE | 2017-11-28 16:05 | CP.PCM.PN ---
Subjective - Date & Time of Evaluation Date of Evaluation: 11/28/17 Time of Evaluation: 16:05 Objective - Vital Signs/Intake and Output Vital Signs (last 24 hours): Temp Pulse Resp BP Pulse Ox 97.9 F 63 20 121/62 97 11/28/17 08:30 11/28/17 12:15 11/28/17 08:30 11/28/17 09:34 11/28/17 08:30 Intake and Output: 11/28/17 11/28/17 06:59 18:59 Intake Total 100 500 Balance 100 500 - Medications Medications: Current Medications Albuterol/Ipratropium (Duoneb 3 Mg/0.5 Mg (3 Ml) Ud) 3 ml INH RQ6 [facility] Last Admin: 11/28/17 13:20 Dose: 3 ml Donepezil HCl (Aricept) 10 mg PO DAILY [facility] Enoxaparin Sodium (Lovenox) 40 mg SC DAILY [facility] Last Admin: 11/28/17 09:27 Dose: 40 mg Furosemide (Lasix) 20 mg IVP DAILY [facility] Last Admin: 11/28/17 09:34 Dose: 20 mg Glipizide (Glucotrol) 5 mg PO DAILY [facility] Last Admin: 11/28/17 09:27 Dose: 5 mg Moxifloxacin HCl (Avelox Iv 400mg/250ml Ns) 400 mg in 250 mls @ 167 mls/hr IVPB Q24H [facility] Last Admin: 11/27/17 21:40 Dose: 167 mls/hr Insulin Aspart (Novolog) 0 unit SC ACHS [facility] PRN Reason: Protocol Last Admin: 11/28/17 11:25 Dose: Not Given Loperamide HCl (Imodium) 2 mg PO ONCE PRN PRN Reason: after stool CDiff collected Losartan Potassium (Cozaar) 25 mg PO DAILY [facility] Last Admin: 11/28/17 09:28 Dose: 25 mg Methylprednisolone (Solu-Medrol) 40 mg IVP Q12 [facility] Last Admin: 11/28/17 09:25 Dose: 40 mg Pantoprazole Sodium (Protonix Ec Tab) 40 mg PO DAILY [facility] Last Admin: 11/28/17 09:27 Dose: 40 mg Promethazine HCl (Phenergan Syrup) 6.25 mg PO Q8 [facility] Last Admin: 11/28/17 13:07 Dose: 6.25 mg Rosuvastatin Calcium (Crestor) 5 mg PO HS [facility] Last Admin: 11/27/17 21:39 Dose: 5 mg Fluticasone/Salmeterol (Advair Diskus 250/50) 1 puff INH RQ12 [facility] Last Admin: 11/28/17 07:47 Dose: Not Given Sitagliptin Phosphate (Januvia) 50 mg PO DAILY [facility] Last Admin: 11/28/17 09:27 Dose: 50 mg - Labs Labs: 11/25/17 14:48 11/26/17 06:17 PT 12.2 SECONDS (9.7-12.2) 11/25/17 14:48 INR 1.1 11/25/17 14:48 APTT 31 SECONDS (21-34) 11/25/17 14:48
--- NOTE | 2017-11-28 19:39 | CP.PCM.PN ---
Subjective - Date & Time of Evaluation Date of Evaluation: 11/28/17 Time of Evaluation: 11:40 - Subjective Subjective: clinically same Objective - Vital Signs/Intake and Output Vital Signs (last 24 hours): Temp Pulse Resp BP Pulse Ox 97.6 F 90 18 123/69 97 11/28/17 15:13 11/28/17 15:13 11/28/17 15:13 11/28/17 15:13 11/28/17 15:13 Intake and Output: 11/28/17 11/29/17 18:59 06:59 Intake Total 500 Balance 500 - Medications Medications: Current Medications Albuterol/Ipratropium (Duoneb 3 Mg/0.5 Mg (3 Ml) Ud) 3 ml INH RQ6 [facility] Last Admin: 11/28/17 19:20 Dose: 3 ml Donepezil HCl (Aricept) 10 mg PO DAILY [facility] Enoxaparin Sodium (Lovenox) 40 mg SC DAILY [facility] Last Admin: 11/28/17 09:27 Dose: 40 mg Furosemide (Lasix) 20 mg IVP DAILY [facility] Last Admin: 11/28/17 09:34 Dose: 20 mg Glipizide (Glucotrol) 5 mg PO DAILY [facility] Last Admin: 11/28/17 09:27 Dose: 5 mg Moxifloxacin HCl (Avelox Iv 400mg/250ml Ns) 400 mg in 250 mls @ 167 mls/hr IVPB Q24H [facility] Last Admin: 11/27/17 21:40 Dose: 167 mls/hr Insulin Aspart (Novolog) 0 unit SC ACHS [facility] PRN Reason: Protocol Last Admin: 11/28/17 17:30 Dose: 4 unit Loperamide HCl (Imodium) 2 mg PO ONCE PRN PRN Reason: after stool CDiff collected Losartan Potassium (Cozaar) 25 mg PO DAILY [facility] Last Admin: 11/28/17 09:28 Dose: 25 mg Methylprednisolone (Solu-Medrol) 40 mg IVP Q12 [facility] Last Admin: 11/28/17 09:25 Dose: 40 mg Pantoprazole Sodium (Protonix Ec Tab) 40 mg PO DAILY [facility] Last Admin: 11/28/17 09:27 Dose: 40 mg Promethazine HCl (Phenergan Syrup) 6.25 mg PO Q8 [facility] Last Admin: 11/28/17 13:07 Dose: 6.25 mg Rosuvastatin Calcium (Crestor) 5 mg PO HS [facility] Last Admin: 11/27/17 21:39 Dose: 5 mg Fluticasone/Salmeterol (Advair Diskus 250/50) 1 puff INH RQ12 [facility] Last Admin: 11/28/17 19:18 Dose: Not Given Sitagliptin Phosphate (Januvia) 50 mg PO DAILY [facility] Last Admin: 11/28/17 09:27 Dose: 50 mg - Labs Labs: 11/25/17 14:48 11/26/17 06:17 PT 12.2 SECONDS (9.7-12.2) 11/25/17 14:48 INR 1.1 11/25/17 14:48 APTT 31 SECONDS (21-34) 11/25/17 14:48
--- NOTE | 2017-11-28 20:12 | CP.PCM.PN ---
Subjective - Date & Time of Evaluation Date of Evaluation: 11/28/17 Time of Evaluation: 20:12 - Subjective Subjective: CHIEF COMPLAINTS TODAY : afebrile FEELING BETTER lESS COUGH ROS. HEENT : N. Resp : No SOB wheezing, COUGH WITH PRODUCTIVE SPUTUM. Cardio : No CP, PND orthopnea GI : No abd. 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 Musculoskel : N Ext. : Pedal pulses intact, no edema or calf pain Derm : N Psych : N. PE. Pt. is alert awake in no distress. V.S As noted in the chart Head ,ear nose,throat and eyes : Normal. Neck : Supple with normal carotids. Lungs: LESS RHONCHI BILATERALLY. Heart : S1 & S2 normal . . No murmur. S4 + Abd : Soft non tender with normal bowel sounds. Neuro : Moves all ext. with no localized deficit. Ext : No edema with intact pulses. Neg. calf tenderness Derm : No rashes or decubitus ulcer. Radiology/Labs . REVIEWED. BLOOD CULTURES NEGATIVE FOR 3 DAYS. STOOL C. DIFFICILE NEGATIVE Objective - Vital Signs/Intake and Output Vital Signs (last 24 hours): Temp Pulse Resp BP Pulse Ox 97.6 F 90 18 123/69 97 11/28/17 15:13 11/28/17 15:13 11/28/17 15:13 11/28/17 15:13 11/28/17 15:13 Intake and Output: 11/28/17 11/29/17 18:59 06:59 Intake Total 500 Balance 500 - Medications Medications: Current Medications Albuterol/Ipratropium (Duoneb 3 Mg/0.5 Mg (3 Ml) Ud) 3 ml INH RQ6 [facility] Last Admin: 11/28/17 19:20 Dose: 3 ml Donepezil HCl (Aricept) 10 mg PO DAILY [facility] Enoxaparin Sodium (Lovenox) 40 mg SC DAILY [facility] Last Admin: 11/28/17 09:27 Dose: 40 mg Furosemide (Lasix) 20 mg IVP DAILY [facility] Last Admin: 11/28/17 09:34 Dose: 20 mg Glipizide (Glucotrol) 5 mg PO DAILY [facility] Last Admin: 11/28/17 09:27 Dose: 5 mg Moxifloxacin HCl (Avelox Iv 400mg/250ml Ns) 400 mg in 250 mls @ 167 mls/hr IVPB Q24H [facility] Last Admin: 11/27/17 21:40 Dose: 167 mls/hr Insulin Aspart (Novolog) 0 unit SC ACHS [facility] PRN Reason: Protocol Last Admin: 11/28/17 17:30 Dose: 4 unit Loperamide HCl (Imodium) 2 mg PO ONCE PRN PRN Reason: after stool CDiff collected Losartan Potassium (Cozaar) 25 mg PO DAILY [facility] Last Admin: 11/28/17 09:28 Dose: 25 mg Methylprednisolone (Solu-Medrol) 40 mg IVP Q12 [facility] Last Admin: 11/28/17 09:25 Dose: 40 mg Pantoprazole Sodium (Protonix Ec Tab) 40 mg PO DAILY [facility] Last Admin: 11/28/17 09:27 Dose: 40 mg Promethazine HCl (Phenergan Syrup) 6.25 mg PO Q8 [facility] Last Admin: 11/28/17 13:07 Dose: 6.25 mg Rosuvastatin Calcium (Crestor) 5 mg PO HS [facility] Last Admin: 11/27/17 21:39 Dose: 5 mg Fluticasone/Salmeterol (Advair Diskus 250/50) 1 puff INH RQ12 [facility] Last Admin: 11/28/17 19:18 Dose: Not Given Sitagliptin Phosphate (Januvia) 50 mg PO DAILY [facility] Last Admin: 11/28/17 09:27 Dose: 50 mg - Labs Labs: 11/25/17 14:48 11/26/17 06:17 PT 12.2 SECONDS (9.7-12.2) 11/25/17 14:48 INR 1.1 11/25/17 14:48 APTT 31 SECONDS (21-34) 11/25/17 14:48 - Constitutional Appears: No Acute Distress - Head Exam Head Exam: NORMAL INSPECTION - Eye Exam Eye Exam: EOMI, PERRL - ENT Exam ENT Exam: Normal Oropharynx - Neck Exam Neck Exam: Normal Inspection - Respiratory Exam Respiratory Exam: Rhonchi (LESS CONGESTION AND RHONCHI.) - Cardiovascular Exam Cardiovascular Exam: REGULAR RHYTHM, +S1, +S2 - GI/Abdominal Exam GI & Abdominal Exam: Soft, Normal Bowel Sounds - Extremities Exam Extremities Exam: absent: Calf Tenderness, Pedal Edema - Neurological Exam Neurological Exam: Awake, CN II-XII Intact, Oriented x3 - Psychiatric Exam Psychiatric exam: Normal Mood - Skin Skin Exam: Normal Color, Warm Assessment and Plan (1) Chronic obstructive pulmonary disease with (acute) exacerbation Assessment & Plan: continue IV Avelox 400 mg once a day daily.11/25/17. can switch to by mouth Cipro 250 twice a day x 5 days. FOLLOW-UP BLOOD WORKS IN A.M. fOLLOW-UP lftS IN A.M. Nebulizer therapy Pulmonary toilet as per pulmonary. Status: Acute (2) Acute bronchitis Assessment & Plan: much improved Status: Acute (3) Cough Assessment & Plan: breasts cough Status: Acute (4) Diabetes Status: Acute (5) Hypertension Status: Acute (6) Diarrhea Status: Acute
[2017-11-28] MEDS: Moxifloxacin IV 400mg/250ml NS 400 MG/250 ML BAG IVPB SCH (21:29)
[2017-11-29] MEDS: Albuterol-Ipratrop 3 mg / 0.5 (3 ml) UD INH SCH ×3 (01:54→20:46)
[2017-11-29] MEDS: Promethazine 6.25 MG/5 ML CUP PO SCH ×3 (05:52→21:22)
[2017-11-29 07:38] LABS: BASO % 0.1 % (0.0-2.0); HEMOGLOBIN 12.8 g/dL (11.0-16.0); LYMPH # 1.5 K/uL (1.0-4.3); MEAN CELL VOLUME 94.7 fL (81.0-99.0); MEAN CORPUSCULAR HEMOGLOBIN 32.1 pg (27.0-31.0); MEAN CORPUSCULAR HGB CONC 33.9 g/dL (33.0-37.0); MEAN PLATELET VOLUME 11.2 fL (7.2-11.7); MONO # 0.9 K/uL (0.0-0.8); MONO % 6.9 % (0.0-10.0); NEUT # 10.4 K/uL (1.8-7.0); RBC 3.99 Mil/uL (3.80-5.20); RED CELL DISTRIBUTION WIDTH 14.6 % (11.5-14.5); WHITE BLOOD COUNT 12.8 K/uL (4.8-10.8)
[2017-11-29] MEDS: (Novolog) Insulin Aspart, Recombinant 100 u/ml 10 ml vial SC SCH ×4 (08:05→21:53)
[2017-11-29 08:34] LABS: ALB/GLOB RATIO 1.1 (1.0-2.1); ALBUMIN 3.4 g/dL (3.5-5.0); ALT/SGPT 39 U/L (9-52); AST/SGOT 40 U/L (14-36); BILIRUBIN,DIRECT 0.3 mg/dL (0.0-0.4); BLOOD UREA NITROGEN 29 mg/dL (7-17); CALCIUM 7.3 mg/dl (8.6-10.4); GFR AFRICAN-AMERICAN > 60; GFR NON-AFRICAN AMERICAN > 60
[2017-11-29] MEDS: Potassium Chloride 20 mEq ER Tab PO SCH ×2 (09:39→13:46)
[2017-11-29] MEDS: MethylPREDNISolone 40 mg Vial IVP SCH ×2 (09:40→21:22)
[2017-11-29] MEDS: Pantoprazole 40 mg EC Tab PO SCH (09:47)
[2017-11-29] MEDS: Enoxaparin 40 mg Syringe SC SCH (09:50)
[2017-11-29] MEDS: Fluticasone-Salmeterol 250-50mcg Diskus INH SCH ×2 (13:08→20:46)
--- NOTE | 2017-11-29 15:11 | CP.PCM.PN ---
Subjective - Date & Time of Evaluation Date of Evaluation: 11/29/17 Time of Evaluation: 10:40 - Subjective Subjective: clinically same Objective - Vital Signs/Intake and Output Vital Signs (last 24 hours): Temp Pulse Resp BP Pulse Ox 97.6 F 76 18 132/69 97 11/29/17 07:25 11/29/17 12:00 11/29/17 07:25 11/29/17 09:41 11/29/17 07:25 - Medications Medications: Current Medications Albuterol/Ipratropium (Duoneb 3 Mg/0.5 Mg (3 Ml) Ud) 3 ml INH RQ6 [facility] Last Admin: 11/29/17 07:20 Dose: 3 ml Donepezil HCl (Aricept) 10 mg PO DAILY [facility] Enoxaparin Sodium (Lovenox) 40 mg SC DAILY [facility] Last Admin: 11/29/17 09:50 Dose: 40 mg Furosemide (Lasix) 20 mg IVP DAILY [facility] Last Admin: 11/29/17 09:41 Dose: 20 mg Glipizide (Glucotrol) 5 mg PO DAILY [facility] Last Admin: 11/29/17 09:47 Dose: 5 mg Moxifloxacin HCl (Avelox Iv 400mg/250ml Ns) 400 mg in 250 mls @ 167 mls/hr IVPB Q24H [facility] Last Admin: 11/28/17 21:29 Dose: 167 mls/hr Insulin Aspart (Novolog) 0 unit SC ACHS [facility] PRN Reason: Protocol Last Admin: 11/29/17 12:40 Dose: 3 unit Loperamide HCl (Imodium) 2 mg PO ONCE PRN PRN Reason: after stool CDiff collected Losartan Potassium (Cozaar) 25 mg PO DAILY [facility] Last Admin: 11/29/17 09:47 Dose: 25 mg Methylprednisolone (Solu-Medrol) 40 mg IVP Q12 [facility] Last Admin: 11/29/17 09:40 Dose: 40 mg Pantoprazole Sodium (Protonix Ec Tab) 40 mg PO DAILY [facility] Last Admin: 11/29/17 09:47 Dose: 40 mg Promethazine HCl (Phenergan Syrup) 6.25 mg PO Q8 [facility] Last Admin: 11/29/17 13:46 Dose: 6.25 mg Rosuvastatin Calcium (Crestor) 5 mg PO HS [facility] Last Admin: 11/28/17 21:28 Dose: 5 mg Fluticasone/Salmeterol (Advair Diskus 250/50) 1 puff INH RQ12 [facility] Last Admin: 11/29/17 13:08 Dose: Not Given Sitagliptin Phosphate (Januvia) 50 mg PO DAILY [facility] Last Admin: 11/29/17 11:45 Dose: Not Given - Labs Labs: 11/29/17 07:26 11/29/17 07:26 PT 12.2 SECONDS (9.7-12.2) 11/25/17 14:48 INR 1.1 11/25/17 14:48 APTT 31 SECONDS (21-34) 11/25/17 14:48
--- NOTE | 2017-11-29 18:24 | CP.PCM.PN ---
Subjective - Date & Time of Evaluation Date of Evaluation: 11/29/17 Time of Evaluation: 18:24 Objective - Vital Signs/Intake and Output Vital Signs (last 24 hours): Temp Pulse Resp BP Pulse Ox 97.9 F 90 18 125/74 96 11/29/17 15:16 11/29/17 16:09 11/29/17 15:16 11/29/17 15:16 11/29/17 15:16 - Medications Medications: Current Medications Albuterol/Ipratropium (Duoneb 3 Mg/0.5 Mg (3 Ml) Ud) 3 ml INH RQ6 [facility] Last Admin: 11/29/17 07:20 Dose: 3 ml Donepezil HCl (Aricept) 10 mg PO DAILY [facility] Enoxaparin Sodium (Lovenox) 40 mg SC DAILY [facility] Last Admin: 11/29/17 09:50 Dose: 40 mg Furosemide (Lasix) 20 mg IVP DAILY [facility] Last Admin: 11/29/17 09:41 Dose: 20 mg Glipizide (Glucotrol) 5 mg PO DAILY [facility] Last Admin: 11/29/17 09:47 Dose: 5 mg Moxifloxacin HCl (Avelox Iv 400mg/250ml Ns) 400 mg in 250 mls @ 167 mls/hr IVPB Q24H [facility] Last Admin: 11/28/17 21:29 Dose: 167 mls/hr Insulin Aspart (Novolog) 0 unit SC ACHS [facility] PRN Reason: Protocol Last Admin: 11/29/17 17:15 Dose: 2 unit Loperamide HCl (Imodium) 2 mg PO ONCE PRN PRN Reason: after stool CDiff collected Losartan Potassium (Cozaar) 25 mg PO DAILY [facility] Last Admin: 11/29/17 09:47 Dose: 25 mg Methylprednisolone (Solu-Medrol) 40 mg IVP Q12 [facility] Last Admin: 11/29/17 09:40 Dose: 40 mg Pantoprazole Sodium (Protonix Ec Tab) 40 mg PO DAILY [facility] Last Admin: 11/29/17 09:47 Dose: 40 mg Promethazine HCl (Phenergan Syrup) 6.25 mg PO Q8 [facility] Last Admin: 11/29/17 13:46 Dose: 6.25 mg Rosuvastatin Calcium (Crestor) 5 mg PO HS [facility] Last Admin: 11/28/17 21:28 Dose: 5 mg Fluticasone/Salmeterol (Advair Diskus 250/50) 1 puff INH RQ12 [facility] Last Admin: 11/29/17 13:08 Dose: Not Given Sitagliptin Phosphate (Januvia) 50 mg PO DAILY [facility] Last Admin: 11/29/17 11:45 Dose: Not Given - Labs Labs: 11/29/17 07:26 11/29/17 07:26 PT 12.2 SECONDS (9.7-12.2) 11/25/17 14:48 INR 1.1 11/25/17 14:48 APTT 31 SECONDS (21-34) 11/25/17 14:48
--- NOTE | 2017-11-29 21:05 | CP.PCM.PN ---
Subjective - Date & Time of Evaluation Date of Evaluation: 11/29/17 Time of Evaluation: 21:05 - Subjective Subjective: CHIEF COMPLAINTS TODAY : afebrile, less dyspnea FEELING BETTER lESS COUGH DENIES FURTHER DIARRHOEA. ROS. HEENT : N. Resp : No SOB wheezing, COUGH WITH PRODUCTIVE SPUTUM. Cardio : No CP, PND orthopnea GI : No abd. Pain, n/v RESIDENCY COORDINATOR : No headache , focal deficit. Musculoskel : N Ext. : Pedal pulses intact, no edema or calf pain Derm : N Psych : N. PE. Pt. is alert awake in no distress. V.S As noted in the chart Head ,ear nose,throat and eyes : Normal. Neck : Supple with normal carotids. Lungs: FEW RHONCHI BILATERALLY. Heart : S1 & S2 normal . . No murmur. S4 + Abd : Soft non tender with normal bowel sounds. Neuro : Moves all ext. with no localized deficit. Ext : No edema with intact pulses. Neg. calf tenderness Derm : No rashes or decubitus ulcer. Radiology/Labs . REVIEWED. WBC 12.8 CREAT 0.7/BUN 29 LFTS AST40,ALT N, AP 35 N BLOOD CULTURES NEGATIVE FOR 3 DAYS. STOOL C. DIFFICILE NEGATIVE Objective - Vital Signs/Intake and Output Vital Signs (last 24 hours): Temp Pulse Resp BP Pulse Ox 97.9 F 90 18 125/74 96 11/29/17 15:16 11/29/17 16:09 11/29/17 15:16 11/29/17 15:16 11/29/17 15:16 - Medications Medications: Current Medications Albuterol/Ipratropium (Duoneb 3 Mg/0.5 Mg (3 Ml) Ud) 3 ml INH RQ6 [facility] Last Admin: 11/29/17 20:46 Dose: 3 ml Donepezil HCl (Aricept) 10 mg PO DAILY [facility] Enoxaparin Sodium (Lovenox) 40 mg SC DAILY [facility] Last Admin: 11/29/17 09:50 Dose: 40 mg Furosemide (Lasix) 20 mg IVP DAILY [facility] Last Admin: 11/29/17 09:41 Dose: 20 mg Glipizide (Glucotrol) 5 mg PO DAILY [facility] Last Admin: 11/29/17 09:47 Dose: 5 mg Moxifloxacin HCl (Avelox Iv 400mg/250ml Ns) 400 mg in 250 mls @ 167 mls/hr IVPB Q24H [facility] Last Admin: 11/28/17 21:29 Dose: 167 mls/hr Insulin Aspart (Novolog) 0 unit SC ACHS [facility] PRN Reason: Protocol Last Admin: 11/29/17 17:15 Dose: 2 unit Loperamide HCl (Imodium) 2 mg PO ONCE PRN PRN Reason: after stool CDiff collected Losartan Potassium (Cozaar) 25 mg PO DAILY [facility] Last Admin: 11/29/17 09:47 Dose: 25 mg Methylprednisolone (Solu-Medrol) 40 mg IVP Q12 [facility] Last Admin: 11/29/17 09:40 Dose: 40 mg Pantoprazole Sodium (Protonix Ec Tab) 40 mg PO DAILY [facility] Last Admin: 11/29/17 09:47 Dose: 40 mg Promethazine HCl (Phenergan Syrup) 6.25 mg PO Q8 [facility] Last Admin: 11/29/17 13:46 Dose: 6.25 mg Rosuvastatin Calcium (Crestor) 5 mg PO HS [facility] Last Admin: 11/28/17 21:28 Dose: 5 mg Fluticasone/Salmeterol (Advair Diskus 250/50) 1 puff INH RQ12 [facility] Last Admin: 11/29/17 20:46 Dose: 1 puff Sitagliptin Phosphate (Januvia) 50 mg PO DAILY [facility] Last Admin: 11/29/17 11:45 Dose: Not Given - Labs Labs: 11/29/17 07:26 11/29/17 07:26 PT 12.2 SECONDS (9.7-12.2) 11/25/17 14:48 INR 1.1 11/25/17 14:48 APTT 31 SECONDS (21-34) 11/25/17 14:48 Assessment and Plan (1) Chronic obstructive pulmonary disease with (acute) exacerbation Assessment & Plan: continue IV Avelox 400 mg once a day daily.11/25/17. can switch to by mouth Cipro 250 twice a day x 5 days. Nebulizer therapy Pulmonary toilet as per pulmonary. Status: Acute (2) Acute bronchitis Assessment & Plan: MUCH IMPROVED DYSPNEA. Status: Acute (3) Cough Assessment & Plan: IMPROVED. Status: Acute (4) Diabetes Status: Acute (5) Hypertension Status: Acute (6) Diarrhea Status: Acute
[2017-11-29] MEDS: Moxifloxacin IV 400mg/250ml NS 400 MG/250 ML BAG IVPB SCH (21:21)
[2017-11-30] MEDS: Albuterol-Ipratrop 3 mg / 0.5 (3 ml) UD INH SCH ×4 (01:14→20:05)
[2017-11-30] MEDS: Promethazine 6.25 MG/5 ML CUP PO SCH ×3 (05:46→21:30)
[2017-11-30] MEDS: (Novolog) Insulin Aspart, Recombinant 100 u/ml 10 ml vial SC SCH ×4 (08:30→22:20)
[2017-11-30] MEDS: MethylPREDNISolone 40 mg Vial IVP SCH ×2 (09:47→21:29)
[2017-11-30] MEDS: Pantoprazole 40 mg EC Tab PO SCH (09:47)
[2017-11-30] MEDS: Enoxaparin 40 mg Syringe SC SCH (09:48)
[2017-11-30] MEDS: Fluticasone-Salmeterol 250-50mcg Diskus INH SCH ×2 (12:30→20:05)
--- NOTE | 2017-11-30 13:07 | CP.PCM.PN ---
Subjective - Date & Time of Evaluation Date of Evaluation: 11/30/17 Time of Evaluation: 13:06 Objective - Vital Signs/Intake and Output Vital Signs (last 24 hours): Temp Pulse Resp BP Pulse Ox 98.6 F 75 18 151/73 H 99 11/30/17 07:35 11/30/17 09:46 11/30/17 07:35 11/30/17 09:48 11/30/17 07:35 Intake and Output: 11/30/17 11/30/17 06:59 18:59 Intake Total 770 Balance 770 - Medications Medications: Current Medications Albuterol/Ipratropium (Duoneb 3 Mg/0.5 Mg (3 Ml) Ud) 3 ml INH RQ6 [facility] Last Admin: 11/30/17 07:15 Dose: 3 ml Donepezil HCl (Aricept) 10 mg PO DAILY [facility] Enoxaparin Sodium (Lovenox) 40 mg SC DAILY [facility] Last Admin: 11/30/17 09:48 Dose: 40 mg Furosemide (Lasix) 20 mg IVP DAILY [facility] Last Admin: 11/30/17 09:48 Dose: 20 mg Glipizide (Glucotrol) 5 mg PO DAILY [facility] Last Admin: 11/30/17 09:47 Dose: 5 mg Moxifloxacin HCl (Avelox Iv 400mg/250ml Ns) 400 mg in 250 mls @ 167 mls/hr IVPB Q24H [facility] Last Admin: 11/29/17 21:21 Dose: 167 mls/hr Insulin Aspart (Novolog) 0 unit SC ACHS [facility] PRN Reason: Protocol Last Admin: 11/30/17 12:23 Dose: Not Given Loperamide HCl (Imodium) 2 mg PO ONCE PRN PRN Reason: after stool CDiff collected Losartan Potassium (Cozaar) 25 mg PO DAILY [facility] Last Admin: 11/30/17 09:47 Dose: 25 mg Methylprednisolone (Solu-Medrol) 40 mg IVP Q12 [facility] Last Admin: 11/30/17 09:47 Dose: 40 mg Pantoprazole Sodium (Protonix Ec Tab) 40 mg PO DAILY [facility] Last Admin: 11/30/17 09:47 Dose: 40 mg Promethazine HCl (Phenergan Syrup) 6.25 mg PO Q8 [facility] Last Admin: 11/30/17 05:46 Dose: 6.25 mg Rosuvastatin Calcium (Crestor) 5 mg PO HS [facility] Last Admin: 11/29/17 21:22 Dose: 5 mg Fluticasone/Salmeterol (Advair Diskus 250/50) 1 puff INH RQ12 [facility] Last Admin: 11/29/17 20:46 Dose: 1 puff Sitagliptin Phosphate (Januvia) 50 mg PO DAILY [facility] Last Admin: 11/30/17 09:47 Dose: 50 mg - Labs Labs: 11/29/17 07:26 11/29/17 07:26 PT 12.2 SECONDS (9.7-12.2) 11/25/17 14:48 INR 1.1 11/25/17 14:48 APTT 31 SECONDS (21-34) 11/25/17 14:48
--- NOTE | 2017-11-30 18:35 | CP.PCM.PN ---
Subjective - Date & Time of Evaluation Date of Evaluation: 11/30/17 Time of Evaluation: 10:30 Objective - Vital Signs/Intake and Output Vital Signs (last 24 hours): Temp Pulse Resp BP Pulse Ox 98.6 F 79 18 151/73 H 99 11/30/17 07:35 11/30/17 16:33 11/30/17 07:35 11/30/17 09:48 11/30/17 07:35 Intake and Output: 11/30/17 11/30/17 06:59 18:59 Intake Total 770 Balance 770 - Medications Medications: Current Medications Albuterol/Ipratropium (Duoneb 3 Mg/0.5 Mg (3 Ml) Ud) 3 ml INH RQ6 [facility] Last Admin: 11/30/17 12:30 Dose: 3 ml Donepezil HCl (Aricept) 10 mg PO DAILY [facility] Enoxaparin Sodium (Lovenox) 40 mg SC DAILY [facility] Last Admin: 11/30/17 09:48 Dose: 40 mg Furosemide (Lasix) 20 mg IVP DAILY [facility] Last Admin: 11/30/17 09:48 Dose: 20 mg Glipizide (Glucotrol) 5 mg PO DAILY [facility] Last Admin: 11/30/17 09:47 Dose: 5 mg Moxifloxacin HCl (Avelox Iv 400mg/250ml Ns) 400 mg in 250 mls @ 167 mls/hr IVPB Q24H [facility] Last Admin: 11/29/17 21:21 Dose: 167 mls/hr Insulin Aspart (Novolog) 0 unit SC ACHS [facility] PRN Reason: Protocol Last Admin: 11/30/17 17:30 Dose: 2 unit Loperamide HCl (Imodium) 2 mg PO ONCE PRN PRN Reason: after stool CDiff collected Losartan Potassium (Cozaar) 25 mg PO DAILY [facility] Last Admin: 11/30/17 09:47 Dose: 25 mg Methylprednisolone (Solu-Medrol) 40 mg IVP Q12 [facility] Last Admin: 11/30/17 09:47 Dose: 40 mg Pantoprazole Sodium (Protonix Ec Tab) 40 mg PO DAILY [facility] Last Admin: 11/30/17 09:47 Dose: 40 mg Promethazine HCl (Phenergan Syrup) 6.25 mg PO Q8 [facility] Last Admin: 11/30/17 13:19 Dose: 6.25 mg Rosuvastatin Calcium (Crestor) 5 mg PO HS [facility] Last Admin: 11/29/17 21:22 Dose: 5 mg Fluticasone/Salmeterol (Advair Diskus 250/50) 1 puff INH RQ12 [facility] Last Admin: 11/30/17 12:30 Dose: 1 puff Sitagliptin Phosphate (Januvia) 50 mg PO DAILY [facility] Last Admin: 11/30/17 09:47 Dose: 50 mg - Labs Labs: 11/29/17 07:26 11/29/17 07:26 PT 12.2 SECONDS (9.7-12.2) 11/25/17 14:48 INR 1.1 11/25/17 14:48 APTT 31 SECONDS (21-34) 11/25/17 14:48
[2017-11-30] MEDS: Moxifloxacin IV 400mg/250ml NS 400 MG/250 ML BAG IVPB SCH (21:29)
[2017-12-01] MEDS: Promethazine 6.25 MG/5 ML CUP PO SCH ×3 (05:27→22:01)
[2017-12-01] MEDS: Fluticasone-Salmeterol 250-50mcg Diskus INH SCH (07:00)
[2017-12-01 07:27] LABS: HEMOGLOBIN 13.2 g/dL (11.0-16.0); MEAN CELL VOLUME 94.5 fL (81.0-99.0); MEAN CORPUSCULAR HEMOGLOBIN 31.8 pg (27.0-31.0); MEAN CORPUSCULAR HGB CONC 33.6 g/dL (33.0-37.0); MEAN PLATELET VOLUME 10.9 fL (7.2-11.7); RBC 4.15 Mil/uL (3.80-5.20); RED CELL DISTRIBUTION WIDTH 14.4 % (11.5-14.5); WHITE BLOOD COUNT 13.8 K/uL (4.8-10.8)
[2017-12-01 08:19] LABS: ALB/GLOB RATIO 1.1 (1.0-2.1); ALBUMIN 3.3 g/dL (3.5-5.0); ALT/SGPT 57 U/L (9-52); AST/SGOT 45 U/L (14-36); BLOOD UREA NITROGEN 28 mg/dL (7-17); CALCIUM 7.5 mg/dl (8.6-10.4); GFR AFRICAN-AMERICAN > 60; GFR NON-AFRICAN AMERICAN > 60
[2017-12-01] MEDS: (Novolog) Insulin Aspart, Recombinant 100 u/ml 10 ml vial SC SCH ×4 (08:48→22:01)
[2017-12-01] MEDS: Enoxaparin 40 mg Syringe SC SCH (10:18)
[2017-12-01] MEDS: MethylPREDNISolone 40 mg Vial IVP SCH ×2 (10:18→22:01)
[2017-12-01] MEDS: Pantoprazole 40 mg EC Tab PO SCH (10:18)
--- NOTE | 2017-12-01 15:34 | CP.PCM.PN ---
Subjective - Date & Time of Evaluation Date of Evaluation: 12/01/17 Time of Evaluation: 11:30 - Subjective Subjective: clinically same Objective - Vital Signs/Intake and Output Vital Signs (last 24 hours): Temp Pulse Resp BP Pulse Ox 97.9 F 67 20 155/82 H 94 L 12/01/17 07:00 12/01/17 07:00 12/01/17 07:00 12/01/17 10:19 12/01/17 07:00 Intake and Output: 12/01/17 12/01/17 06:59 18:59 Intake Total 260 Balance 260 - Medications Medications: Current Medications Donepezil HCl (Aricept) 10 mg PO DAILY [facility] Enoxaparin Sodium (Lovenox) 40 mg SC DAILY [facility] Last Admin: 12/01/17 10:18 Dose: 40 mg Furosemide (Lasix) 20 mg IVP DAILY [facility] Last Admin: 12/01/17 10:19 Dose: 20 mg Glipizide (Glucotrol) 5 mg PO DAILY [facility] Last Admin: 12/01/17 10:18 Dose: 5 mg Moxifloxacin HCl (Avelox Iv 400mg/250ml Ns) 400 mg in 250 mls @ 167 mls/hr IVPB Q24H [facility] Last Admin: 11/30/17 21:29 Dose: 167 mls/hr Insulin Aspart (Novolog) 0 unit SC ACHS [facility] PRN Reason: Protocol Last Admin: 12/01/17 13:07 Dose: 1 unit Loperamide HCl (Imodium) 2 mg PO ONCE PRN PRN Reason: after stool CDiff collected Losartan Potassium (Cozaar) 25 mg PO DAILY [facility] Last Admin: 12/01/17 10:18 Dose: 25 mg Methylprednisolone (Solu-Medrol) 40 mg IVP Q12 [facility] Last Admin: 12/01/17 10:18 Dose: 40 mg Pantoprazole Sodium (Protonix Ec Tab) 40 mg PO DAILY [facility] Last Admin: 12/01/17 10:18 Dose: 40 mg Promethazine HCl (Phenergan Syrup) 6.25 mg PO Q8 [facility] Last Admin: 12/01/17 13:08 Dose: 6.25 mg Rosuvastatin Calcium (Crestor) 5 mg PO HS [facility] Last Admin: 11/30/17 21:30 Dose: 5 mg Fluticasone/Salmeterol (Advair Diskus 250/50) 1 puff INH RQ12 [facility] Last Admin: 12/01/17 07:00 Dose: 1 puff Sitagliptin Phosphate (Januvia) 50 mg PO DAILY [facility] Last Admin: 12/01/17 10:18 Dose: 50 mg - Labs Labs: 12/01/17 07:13 12/01/17 07:13 PT 12.2 SECONDS (9.7-12.2) 11/25/17 14:48 INR 1.1 11/25/17 14:48 APTT 31 SECONDS (21-34) 11/25/17 14:48 - Constitutional Appears: Well - Head Exam Head Exam: ATRAUMATIC, NORMAL INSPECTION, NORMOCEPHALIC - Eye Exam Eye Exam: EOMI, Normal appearance, PERRL Pupil Exam: NORMAL ACCOMODATION, PERRL - ENT Exam ENT Exam: Mucous Membranes Moist, Normal Exam - Neck Exam Neck Exam: Full ROM, Normal Inspection. absent: Lymphadenopathy - Respiratory Exam Respiratory Exam: Decreased Breath Sounds - Cardiovascular Exam Cardiovascular Exam: REGULAR RHYTHM, +S1, +S2 - GI/Abdominal Exam GI & Abdominal Exam: Soft, Diminished Bowel Sounds - Rectal Exam Rectal Exam: Deferred
[2017-12-01] MEDS: Moxifloxacin IV 400mg/250ml NS 400 MG/250 ML BAG IVPB SCH (22:01)
--- NOTE | 2017-12-01 23:08 | CP.PCM.PN ---
Subjective - Date & Time of Evaluation Date of Evaluation: 12/01/17 Time of Evaluation: 23:07 - Subjective Subjective: CHIEF COMPLAINTS TODAY : afebrile, DENIES SHORTNESS OF BREATH COUGH IMPROVING. ROS. HEENT : N. Resp : No SOB wheezing, Cardio : No CP, PND orthopnea GI : No abd. Pain, n/v HEAD INSPECTOR AND CENTER MARKER : No headache , focal deficit. Musculoskel : N Ext. : Pedal pulses intact, no edema or calf pain Derm : N Psych : N. PE. Pt. is alert awake in no distress. V.S As noted in the chart Head ,ear nose,throat and eyes : Normal. Neck : Supple with normal carotids. Lungs: FEW RHONCHI -VE WHEEZE Heart : S1 & S2 normal . . No murmur. S4 + Abd : Soft non tender with normal bowel sounds. Neuro : Moves all ext. with no localized deficit. Ext : No edema with intact pulses. Neg. calf tenderness Derm : No rashes or decubitus ulcer. Radiology/Labs . REVIEWED. SPUTUM- MANY EPITHELIAL CELLS-MOST LIKELY ORAL RAMEZ. MRSA SCREEN NEGATIVE WBC 13.8 INCREASING ? STEROIDS CREAT 0.7/BUN 28 LFTS AST45,ALT 57 INCREASING , AP 34 N BLOOD CULTURES NEGATIVE FOR 3 DAYS. STOOL C. DIFFICILE NEGATIVE Objective - Vital Signs/Intake and Output Vital Signs (last 24 hours): Temp Pulse Resp BP Pulse Ox 97.9 F 80 20 128/86 96 12/01/17 16:17 12/01/17 16:17 12/01/17 16:17 12/01/17 16:17 12/01/17 16:17 - Medications Medications: Current Medications Donepezil HCl (Aricept) 10 mg PO DAILY [facility] Enoxaparin Sodium (Lovenox) 40 mg SC DAILY [facility] Last Admin: 12/01/17 10:18 Dose: 40 mg Furosemide (Lasix) 20 mg IVP DAILY [facility] Last Admin: 12/01/17 10:19 Dose: 20 mg Glipizide (Glucotrol) 5 mg PO DAILY [facility] Last Admin: 12/01/17 10:18 Dose: 5 mg Moxifloxacin HCl (Avelox Iv 400mg/250ml Ns) 400 mg in 250 mls @ 167 mls/hr IVPB Q24H [facility] Last Admin: 12/01/17 22:01 Dose: 167 mls/hr Insulin Aspart (Novolog) 0 unit SC ACHS [facility] PRN Reason: Protocol Last Admin: 12/01/17 22:01 Dose: Not Given Loperamide HCl (Imodium) 2 mg PO ONCE PRN PRN Reason: after stool CDiff collected Losartan Potassium (Cozaar) 25 mg PO DAILY [facility] Last Admin: 12/01/17 10:18 Dose: 25 mg Methylprednisolone (Solu-Medrol) 40 mg IVP Q12 [facility] Last Admin: 12/01/17 22:01 Dose: 40 mg Pantoprazole Sodium (Protonix Ec Tab) 40 mg PO DAILY [facility] Last Admin: 12/01/17 10:18 Dose: 40 mg Promethazine HCl (Phenergan Syrup) 6.25 mg PO Q8 [facility] Last Admin: 12/01/17 22:01 Dose: 6.25 mg Rosuvastatin Calcium (Crestor) 5 mg PO HS [facility] Last Admin: 12/01/17 22:01 Dose: 5 mg Fluticasone/Salmeterol (Advair Diskus 250/50) 1 puff INH RQ12 [facility] Last Admin: 12/01/17 07:00 Dose: 1 puff Sitagliptin Phosphate (Januvia) 50 mg PO DAILY [facility] Last Admin: 12/01/17 10:18 Dose: 50 mg Tramadol HCl (Ultram) 50 mg PO Q6 PRN PRN Reason: FOR PAIN 4-7 - Labs Labs: 12/01/17 07:13 12/01/17 07:13 PT 12.2 SECONDS (9.7-12.2) 11/25/17 14:48 INR 1.1 11/25/17 14:48 APTT 31 SECONDS (21-34) 11/25/17 14:48 Assessment and Plan (1) Chronic obstructive pulmonary disease with (acute) exacerbation Assessment & Plan: MUCH IMPROVED DC IV AVELOX lftS INCREASING. OBSERVE OFF ANTIBIOTICS. tAPER OFF STEROIDS PER PULMONARY. Status: Acute (2) Acute bronchitis Assessment & Plan: IMPROVED. Status: Acute (3) Cough Assessment & Plan: IMPROVED Status: Acute (4) Diabetes Status: Acute (5) Hypertension Status: Acute (6) Diarrhea Assessment & Plan: STOOL c. DIFFICILE NEGATIVE. dENIES ANY FURTHER DIARRHEA. Status: Acute
[2017-12-02] MEDS: Promethazine 6.25 MG/5 ML CUP PO SCH ×2 (05:50→14:09)
[2017-12-02] MEDS: Fluticasone-Salmeterol 250-50mcg Diskus INH SCH (07:30)
[2017-12-02] MEDS: (Novolog) Insulin Aspart, Recombinant 100 u/ml 10 ml vial SC SCH ×3 (08:00→17:05)
[2017-12-02 08:15] VITALS: TEMP 97.6; O2SAT 95
[2017-12-02] MEDS: Enoxaparin 40 mg Syringe SC SCH (10:21)
[2017-12-02] MEDS: Pantoprazole 40 mg EC Tab PO SCH (10:21)
[2017-12-02] MEDS: MethylPREDNISolone 40 mg Vial IVP SCH (10:25)
--- NOTE | 2017-12-02 10:51 | CP.PCM.PN ---
Subjective - Date & Time of Evaluation Date of Evaluation: 12/02/17 Time of Evaluation: 10:40 - Subjective Subjective: clinically same Objective - Vital Signs/Intake and Output Vital Signs (last 24 hours): Temp Pulse Resp BP Pulse Ox 97.6 F 54 L 20 145/69 95 12/02/17 07:45 12/02/17 08:00 12/02/17 07:45 12/02/17 10:26 12/02/17 07:45 - Medications Medications: Current Medications Donepezil HCl (Aricept) 10 mg PO DAILY [facility] Enoxaparin Sodium (Lovenox) 40 mg SC DAILY [facility] Last Admin: 12/02/17 10:21 Dose: 40 mg Furosemide (Lasix) 20 mg IVP DAILY [facility] Last Admin: 12/02/17 10:26 Dose: 20 mg Glipizide (Glucotrol) 5 mg PO DAILY [facility] Last Admin: 12/02/17 10:21 Dose: 5 mg Insulin Aspart (Novolog) 0 unit SC ACHS [facility] PRN Reason: Protocol Last Admin: 12/02/17 08:00 Dose: 2 unit Loperamide HCl (Imodium) 2 mg PO ONCE PRN PRN Reason: after stool CDiff collected Losartan Potassium (Cozaar) 25 mg PO DAILY [facility] Last Admin: 12/02/17 10:21 Dose: 25 mg Methylprednisolone (Solu-Medrol) 40 mg IVP Q12 [facility] Last Admin: 12/02/17 10:25 Dose: 40 mg Pantoprazole Sodium (Protonix Ec Tab) 40 mg PO DAILY [facility] Last Admin: 12/02/17 10:21 Dose: 40 mg Promethazine HCl (Phenergan Syrup) 6.25 mg PO Q8 [facility] Last Admin: 12/02/17 05:50 Dose: 6.25 mg Rosuvastatin Calcium (Crestor) 5 mg PO HS [facility] Last Admin: 12/01/17 22:01 Dose: 5 mg Fluticasone/Salmeterol (Advair Diskus 250/50) 1 puff INH RQ12 [facility] Last Admin: 12/01/17 07:00 Dose: 1 puff Sitagliptin Phosphate (Januvia) 50 mg PO DAILY [facility] Last Admin: 12/02/17 10:21 Dose: 50 mg Tramadol HCl (Ultram) 50 mg PO Q6 PRN PRN Reason: FOR PAIN 4-7 - Labs Labs: 12/01/17 07:13 12/01/17 07:13 PT 12.2 SECONDS (9.7-12.2) 11/25/17 14:48 INR 1.1 11/25/17 14:48 APTT 31 SECONDS (21-34) 11/25/17 14:48 - Constitutional Appears: Well - Head Exam Head Exam: ATRAUMATIC, NORMAL INSPECTION, NORMOCEPHALIC - Eye Exam Eye Exam: EOMI, Normal appearance, PERRL Pupil Exam: NORMAL ACCOMODATION, PERRL - ENT Exam ENT Exam: Mucous Membranes Moist, Normal Exam - Neck Exam Neck Exam: Full ROM, Normal Inspection. absent: Lymphadenopathy - Respiratory Exam Respiratory Exam: Decreased Breath Sounds - Cardiovascular Exam Cardiovascular Exam: REGULAR RHYTHM, +S1, +S2 - GI/Abdominal Exam GI & Abdominal Exam: Soft, Diminished Bowel Sounds - Rectal Exam Rectal Exam: Deferred
--- NOTE | 2017-12-02 15:34 | CP.PCM.PN ---
Subjective - Date & Time of Evaluation Date of Evaluation: 12/02/17 Time of Evaluation: 15:34 Objective - Vital Signs/Intake and Output Vital Signs (last 24 hours): Temp Pulse Resp BP Pulse Ox 97.6 F 58 L 20 145/69 95 12/02/17 07:45 12/02/17 12:00 12/02/17 07:45 12/02/17 10:26 12/02/17 07:45 Intake and Output: 12/02/17 12/02/17 06:59 18:59 Intake Total 280 Balance 280 - Medications Medications: Current Medications Albuterol/Ipratropium (Duoneb 3 Mg/0.5 Mg (3 Ml) Ud) 3 ml INH RQ6 [facility] Donepezil HCl (Aricept) 10 mg PO DAILY [facility] Enoxaparin Sodium (Lovenox) 40 mg SC DAILY [facility] Last Admin: 12/02/17 10:21 Dose: 40 mg Furosemide (Lasix) 20 mg IVP DAILY [facility] Last Admin: 12/02/17 10:26 Dose: 20 mg Glipizide (Glucotrol) 5 mg PO DAILY [facility] Last Admin: 12/02/17 10:21 Dose: 5 mg Insulin Aspart (Novolog) 0 unit SC ACHS [facility] PRN Reason: Protocol Last Admin: 12/02/17 12:09 Dose: 3 unit Loperamide HCl (Imodium) 2 mg PO ONCE PRN PRN Reason: after stool CDiff collected Losartan Potassium (Cozaar) 25 mg PO DAILY [facility] Last Admin: 12/02/17 10:21 Dose: 25 mg Methylprednisolone (Solu-Medrol) 40 mg IVP Q12 [facility] Last Admin: 12/02/17 10:25 Dose: 40 mg Pantoprazole Sodium (Protonix Ec Tab) 40 mg PO DAILY [facility] Last Admin: 12/02/17 10:21 Dose: 40 mg Promethazine HCl (Phenergan Syrup) 6.25 mg PO Q8 [facility] Last Admin: 12/02/17 14:09 Dose: 6.25 mg Rosuvastatin Calcium (Crestor) 5 mg PO HS [facility] Last Admin: 12/01/17 22:01 Dose: 5 mg Fluticasone/Salmeterol (Advair Diskus 250/50) 1 puff INH RQ12 [facility] Last Admin: 12/02/17 07:30 Dose: 1 puff Sitagliptin Phosphate (Januvia) 50 mg PO DAILY [facility] Last Admin: 12/02/17 10:21 Dose: 50 mg Tramadol HCl (Ultram) 50 mg PO Q6 PRN PRN Reason: FOR PAIN 4-7 - Labs Labs: 12/01/17 07:13 12/01/17 07:13 PT 12.2 SECONDS (9.7-12.2) 11/25/17 14:48 INR 1.1 11/25/17 14:48 APTT 31 SECONDS (21-34) 11/25/17 14:48
[2017-12-02 16:48] VITALS: PULSE 63
[2017-12-02 17:07] VITALS: BP 133/70; RESP 21
[2017-12-02] MEDS ORDERED: Albuterol-Ipratrop 3 mg / 0.5 (3 ml) UD INH SCH (20:00)
== END 2017-12-02 19:30 | disposition home health service (06) | DRG 192 ==
LOC: C.ER 12:12 → C.9E 16:33 → C.6T 17:37
PROVIDERS: ADMIT Internal Medicine Nephrology; ATTEND Internal Medicine Nephrology
DX: J44.1 Chronic obstructive pulmonary disease with (acute) exacerbation (principal); I11.0 Hypertensive heart disease with heart failure; I50.9 Heart failure, unspecified; Z99.81 Dependence on supplemental oxygen; J44.0 Chronic obstructive pulmonary disease with (acute) lower respiratory infection; J20.9 Acute bronchitis, unspecified; E03.9 Hypothyroidism, unspecified; E11.9 Type 2 diabetes mellitus without complications; G30.9 Alzheimer's disease, unspecified; F02.80 Dementia in other diseases classified elsewhere, unspecified severity, without behavioral disturbance, psychotic disturbance, mood disturbance, and anxiety; E78.5 Hyperlipidemia, unspecified; Z88.0 Allergy status to penicillin; Z90.49 Acquired absence of other specified parts of digestive tract

== ENCOUNTER 2018-10-08 11:46 | Emergency (ER) | payer MEDICARE, MEDICAID ==
[2018-10-08 11:57] VITALS: BMI 32.1
[2018-10-08 12:02] VITALS: O2SAT 100
--- NOTE | 2018-10-08 12:27 | C.PDOC ---
History Of Present Illness 83 y/o female with history of DM presents to ED with c/o abdominal pain and diarrhea for 1 month. Patient states she saw her PMD and was given medication she finished with no improvement. Patient reports 2-3 episodes of non bloody di arrhea daily and denies nausea, vomiting, chest pain, sob, vaginal discharge or any other complaints at this time. PMD: Dr. Dong Time Seen by Provider: 10/08/18 12:23 Chief Complaint (Nursing): Abdominal Pain History Per: Patient History/Exam Limitations: no limitations Onset/Duration Of Symptoms: Days Current Symptoms Are (Timing): Still Present Location Of Pain/Discomfort: Diffuse Past Medical History Reviewed: Historical Data, Nursing Documentation, Vital Signs Vital Signs: Last Vital Signs Temp 97.4 F L 10/08/18 11:57 Pulse 58 L 10/08/18 11:57 Resp 17 10/08/18 11:57 BP 102/59 L 10/08/18 11:57 Pulse Ox 100 10/08/18 11:57 - Medical History PMH: Alzheimer's Disease, Asthma, CHF, COPD, HTN, Hypothyroidism Surgical History: Appendectomy - [facility] EXCISION OF STOMACH, ENDO, DIAGN (05/07/16) Family History: States: No Known Family Hx - Social History Hx Alcohol Use: No Hx Substance Use: No - Immunization History Hx Tetanus Toxoid Vaccination: No Hx Influenza Vaccination: Yes Hx Pneumococcal Vaccination: Yes Review Of Systems Constitutional: Negative for: Fever, Chills Cardiovascular: Negative for: Chest Pain Respiratory: Negative for: Cough, Shortness of Breath Gastrointestinal: Positive for: Abdominal Pain, Diarrhea. Negative for: Nausea, Vomiting, Hematochezia Genitourinary: Negative for: Vaginal Discharge Musculoskeletal: Negative for: Back Pain Skin: Negative for: Rash Physical Exam - Physical Exam Appears: Non-toxic, No Acute Distress Skin: Warm, Dry, No Rash Head: Atraumatic, Normacephalic Eye(s): bilateral: Normal Inspection Ear(s): Bilateral: Normal (Left ear hearing aid intact) Oral Mucosa: Moist Neck: Normal ROM, Supple Cardiovascular: Rhythm Regular Respiratory: Normal Breath Sounds, No Rales, No Rhonchi, No Wheezing Gastrointestinal/Abdominal: Soft, Tenderness (LLQ), No Guarding, No Rebound Back: No CVA Tenderness Extremity: Normal ROM, No Pedal Edema, Capillary Refill (<2 seconds) Neurological/Psych: Oriented x3, Normal Speech, Normal Cognition ED Course And Treatment - Laboratory Results Result Diagrams: 10/08/18 12:36 10/08/18 13:06 O2 Sat by Pulse Oximetry: 100 (RA) Pulse Ox Interpretation: Normal Medical Decision Making Medical Decision Makin yr old female p/w diarrhea w/ out significant abdominal pain on exam. No recent abx or recent travel abroad. Seen by PMD, was given meds but diarrhea persists. well appearing on exam. Will seek ct given age and diarrhea. Plan: CT abd/pelvis with contrast, Blood work, ECG, Stool culture, UA ordered Progress: 1657 EKG 52, nsr, no stemi labs imaging largely unremarkable, mildly elevated lipase, non 3x diagnostic for pancreatitis. Nonttp in epigastric area No indication of gastroparesis given pt passing bm well, no n/v. in NAD, walking well, mucosa moist. clear for d/c home Disposition - Disposition Referrals: [facility] [Outside] Ric Hernandez MD [Staff Provider] - Disposition: HOME/ ROUTINE Disposition Time: 16:33 Condition: GOOD Additional Instructions: JOHNNA CHATMAN, thank you for letting us take care of you today. Your provider was Austen Doan and you were treated for ABD PAIN. The emergency medical care you received today was directed at your acute symptoms. If you were prescribed any medication, please fill it and take as directed. It may take several days for your symptoms to resolve. Return to the Emergency Department if your symptoms worsen, do not improve, or if you have any other problems. Please contact your doctor or call one of the physicians/clinics you have been r eferred to that are listed on the Patient Visit Information form that is included in your discharge packet. Bring any paperwork you were given at discharge with you along with any medications you are taking to your follow up visit. Our treatment cannot replace ongoing medical care by a primary care provider outside of the emergency department. Thank you for allowing the [facility] team to be part of your care today. If you had an X-Ray or CT scan: A Radiologist will review the ED reading if any change in treatment is needed we will contact you. If you had a blood, urine, or wound culture: It will take several days for the results, if any change in treatment is needed we will contact you. If you had an STI test: It will take 48 hours for the results. Please call after 1 week if you have not heard back. Instructions: Diarrhea in Adolescents and Adults Forms: [facility] (Indian) Print Language: ICELANDIC - Clinical Impression Clinical Impression: Diarrhea - Scribe Statement The provider has reviewed the documentation as recorded by the Anandaibsantos Antunez All medical record entries made by the Hakan were at my direction and personally dictated by me. I have reviewed the chart and agree that the record accurately reflects my personal performance of the history, physical exam, medical decision making, and the department course for this patient. I have also personally directed, reviewed, and agree with the discharge instructions and disposition.
[2018-10-08 12:58] LABS: BASO # 0.1 K/uL (0.0-0.2); BASO % 0.9 % (0.0-2.0); EOS # 0.2 K/uL (0.0-0.7); EOS % 2.1 % (0.0-4.0); HEMOGLOBIN 12.1 g/dL (11.0-16.0); LYMPH # 2.7 K/uL (1.0-4.3); LYMPH % 35.4 % (20.0-40.0); MEAN CORPUSCULAR HGB CONC 33.5 g/dL (33.0-37.0); MEAN PLATELET VOLUME 11.1 fL (7.2-11.7); MONO # 0.5 K/uL (0.0-0.8); MONO % 7.2 % (0.0-10.0); NEUT # 4.1 K/uL (1.8-7.0); NEUT % 54.4 % (50.0-75.0); RBC 3.9 Mil/uL (3.80-5.20); RED CELL DISTRIBUTION WIDTH 15.2 % (11.5-14.5); WHITE BLOOD COUNT 7.6 K/uL (4.8-10.8)
[2018-10-08 13:00] LABS: MEAN CELL VOLUME 92.5 fL (81.0-99.0)
[2018-10-08 13:07] LABS: SQUAMOUS EPITHIAL 3 /hpf (0-5); URINE BACTERIA RARE (<OCC); URINE BILIRUBIN NEGATIVE (NEGATIVE); URINE BLOOD NEGATIVE (NEGATIVE); URINE CLARITY Hazy (Clear); URINE COLOR Amber (YELLOW); URINE GLUCOSE (UA) NORMAL (Normal); URINE LEUKOCYTE ESTERASE NEG Leu/uL (Negative); URINE PROTEIN NEGATIVE (NEGATIVE); URINE UROBILINOGEN NORMAL mg/dL (0.2-1.0)
[2018-10-08] MEDS ORDERED: Iohexol 240 (50 ml) ONE (13:26)
[2018-10-08] MEDS ORDERED: Iohexol 240 (50 ml) PO ONE (13:29)
[2018-10-08 14:02] LABS: ALB/GLOB RATIO 1.3 (1.0-2.1); ALT/SGPT 23 U/L (9-52); AST/SGOT 29 U/L (14-36); BLOOD UREA NITROGEN 25 mg/dL (7-17); CALCIUM 9.6 mg/dl (8.6-10.4); GFR NON-AFRICAN AMERICAN 53; LIPASE 545 U/L (23-300)
[2018-10-08] MEDS ORDERED: Sodium Chloride 0.9% 1,000 ML IV SCH (14:15)
[2018-10-08] MEDS ORDERED: Sodium Chloride 0.9% 1,000 ML ONE (14:53)
[2018-10-08 14:55] VITALS: RESP 19
[2018-10-08] MEDS ORDERED: Iodixanol 320 MG/ML 100 ML BOTTLE IV ONE (15:14)
--- NOTE | 2018-10-08 16:18 | CT ---
Date of service: 10/08/2018 PROCEDURE: CT Abdomen and Pelvis with Oral contrast. HISTORY: Epigastric pain and diarrhea in an 82 year old patient COMPARISON: No prior study available comparison. TECHNIQUE: Contiguous axial images of the abdomen and pelvis performed following oral and intravenous injection of approximately 100 cc Visipaque 320 contrast material. Additional 2D sagittal and coronal the reformats generated. Radiation dose: Total exam DLP = 282.9 Gy-cm. This CT exam was performed using one or more of the following dose reduction techniques: Automated exposure control, adjustment of the mA and/or kV according to patient size, and/or use of iterative reconstruction technique. FINDINGS: LOWER THORAX: The lung bases clear. No infiltrate effusion or basilar pneumothorax. Heart size normal. No significant pericardial effusion. There is a small hiatal hernia. LIVER: The liver exhibits normal size measuring approximately 12 cm in CC dimension. Mild diffuse fatty hepatic infiltration. No obvious hepatic mass collection or calcification. Portal and splenic veins are opacified. GALLBLADDER AND BILE DUCTS: Gallbladder is physiologically distended. No evidence of intraluminal gallbladder calculi. Mildly prominent common bile duct PANCREAS: Pancreas is atrophic and fatty replaced. No obvious pancreatic masses collections. SPLEEN: Unremarkable. No splenomegaly. ADRENALS: No adrenal lesions.. KIDNEYS AND URETERS: The kidneys demonstrate symmetric nephrograms. No evidence of nephrolithiasis or hydronephrosis. BLADDER: Urinary bladder is incompletely distended which may in part account for thick-walled appearance however correlation with urinalysis to exclude possibility of a cystitis/UTI. REPRODUCTIVE: The uterus appears grossly unremarkable. APPENDIX: The appendix is not seen with certainty on this exam. No obvious inflammatory changes right lower quadrant of the abdomen BOWEL: Evaluation of the bowel is limited due to incomplete opacification. The stomach is moderate significantly distended with dilute oral contrast material some food debris liquid and air; rule out gastroparesis. Visualized loops of small bowel exhibit are relatively normal contour and caliber. No evidence of acute mechanical small bowel obstruction. There appears to be a large amount of liquid stool in the cecum, at ascending transverse and proximal descending colon consistent with this patient's history of a diarrheal illness. Semi solid-appearing stool present within the distal descending and sigmoid. There also appears to be a few scattered colonic diverticula along the sigmoid colon however no radiographic evidence of acute diverticulitis. PERITONEUM: Unremarkable. No fluid collection. No free air. Note again made of at least 2 small fat containing ventral wall hernia is in the right parasagittal mid and lower pelvis regions former slightly larger latter spect. LYMPH NODES: Unremarkable. No enlarged lymph nodes. VASCULATURE: Unremarkable. No aortic aneurysm. No aortic atherosclerotic calcification or mural plaque present. BONES: Chronic appearing anterior wedge compression fracture of the T10 segment again noted.. Remaining vertebral bodies otherwise exhibit normal stature. Mild multilevel degenerative spondylosis most notably affecting the lower thoracic and upper lumbar spine. The the the OTHER FINDINGS: None. IMPRESSION: Findings consistent with a diarrheal illness. There does appear to be a few scattered colonic diverticula along the sigmoid colon however no radiographic evidence of acute diverticulitis.. Rule out gastroparesis as described above. Mild fatty hepatic infiltration.
[2018-10-08 17:18] VITALS: BP 137/86; PULSE 83; TEMP 97.9
--- NOTE | 2018-10-09 23:41 | CARD ---
APPROVED REPORT Date of service: 10/08/2018 EKG Measurement Heart [id number] IL [id number] [id number] <Conclusion> Sinus bradycardia Otherwise normal ECG
== END 2018-10-08 17:23 | disposition home or self-care (01) ==
LOC: C.ER 11:46
DX: R19.7 Diarrhea, unspecified (principal); G30.9 Alzheimer's disease, unspecified; E03.9 Hypothyroidism, unspecified; I50.9 Heart failure, unspecified; I10 Essential (primary) hypertension; J44.9 Chronic obstructive pulmonary disease, unspecified
CPT/HCPCS: 74177; 80053; 81001; 83690; 83735; 84484; 85025; 93005; 99285; J7030; Q9966; Q9967